=== PATIENT | male | born 1975 | race Hispanic/Latino ===

== ENCOUNTER 2020-11-21 16:53 | Emergency (ER) | payer OTHER ==
[2020-11-21 18:30] LABS: BASOPHILS % (AUTO) 0.6 % (0.0-5.0); EOSINOPHILS % (AUTO) 1.9 % (0.0-8.0); HEMATOCRIT 40.1 % (42-54); LYMPHOCYTES % (AUTO) 22.4 % (21.0-51.0); MEAN CORPUSCULAR HEMOGLOBIN 29.6 pg (27.0-33.0); MEAN CORPUSCULAR HGB CONC 34.9 g/dL (32.0-36.0); MEAN CORPUSCULAR VOLUME 84.8 fL (79-99); MONOCYTES % (AUTO) 5.6 % (3.0-13.0); NEUTROPHILS % (AUTO) 69.5 % (40.0-77.0); PLATELET COUNT (AUTO) 25 K/uL (130-400); RED BLOOD CELL COUNT(AUTO) 4.73 MIL/uL (4.50-6.20); RED CELL DISTRIBUTION WIDTH 14.6 % (11.0-15.5); WHITE BLOOD COUNT (AUTO) 3.2 K/uL (4.8-10.8)
[2020-11-21 18:33] LABS: CREATININE 0.7 mg/dL (0.5-1.5); POTASSIUM 3.6 mmol/L (3.5-5.1)
[2020-11-21 18:35] LABS: INR 1.32 (0.85-1.15)
[2020-11-21 18:36] LABS: PARTIAL THROMBOPLASTIN TIME 30.4 SEC (26.3-35.5)
[2020-11-21 18:37] LABS: ALBUMIN 3.6 g/dL (3.5-5.0); BILIRUBIN,TOTAL 3.5 mg/dL (0.2-1.0); TOTAL PROTEIN, SERUM 8.3 g/dL (6.0-8.3)
[2020-11-21] MEDS ORDERED: SODIUM CHLORIDE 0.9% 500ML 500 ML IV ONE (20:00)
[2020-11-21] MEDS ORDERED: LORAZEPAM 2 MG/ML 1 ML VIAL ONE (21:48)
[2020-11-21] MEDS ORDERED: SODIUM CHLORIDE 0.9% 100 ML IV ONE (22:22)
== END 2020-11-22 00:39 | disposition home or self-care (01) ==
LOC: EDH 16:53
DX: D69.59 Other secondary thrombocytopenia (principal); F10.10 Alcohol abuse, uncomplicated; R21 Rash and other nonspecific skin eruption
CPT/HCPCS: 36415; 36430; 80053; 85025; 85610; 85730; 86850; 86900; 86901; 96361; 96374; 99285; J2060; J7040; P9034

== ENCOUNTER 2021-07-09 02:26 | Inpatient (IN) | payer OTHER ==
[~2021-07-09] VITALS: Ht 180.3 cm; Wt 113.9 kg
[2021-07-09 03:08] LABS: BASOPHILS % (AUTO) 0.6 % (0.0-5.0); CREATININE 0.8 mg/dL (0.5-1.5); EOSINOPHILS % (AUTO) 0.6 % (0.0-8.0); HEMATOCRIT 36.1 % (42-54); LYMPHOCYTES % (AUTO) 21.1 % (21.0-51.0); MEAN CORPUSCULAR HEMOGLOBIN 22.3 pg (27.0-33.0); MEAN CORPUSCULAR HGB CONC 29.6 g/dL (32.0-36.0); MEAN CORPUSCULAR VOLUME 75.4 fL (79-99); MONOCYTES % (AUTO) 6.7 % (3.0-13.0); NEUTROPHILS % (AUTO) 69.6 % (40.0-77.0); POTASSIUM 3.5 mmol/L (3.5-5.1); RED BLOOD CELL COUNT(AUTO) 4.79 MIL/uL (4.50-6.20); RED CELL DISTRIBUTION WIDTH 20.3 % (11.0-15.5); WHITE BLOOD COUNT (AUTO) 3.6 K/uL (4.8-10.8)
[2021-07-09] MEDS ORDERED: 0.9%NACL 1000ML 1,000 ML IV ONE ×3 (03:14→04:00)
[2021-07-09 03:20] LABS: ALBUMIN 3.3 g/dL (3.5-5.0); BILIRUBIN,TOTAL 3.4 mg/dL (0.2-1.0); TOTAL PROTEIN, SERUM 8.1 g/dL (6.0-8.3)
[2021-07-09 03:36] LABS: B-TYPE NATRIURETIC PEPTIDE 19 pg/mL (0-100); PLATELET COUNT (AUTO) 18 K/uL (130-400)
[2021-07-09] MEDS ORDERED: CALCIUM GLUC 1GM/10ML VIAL IV ONE (04:00)
[2021-07-09] MEDS ORDERED: NITROGLYCERIN 0.4 MG SL TAB SL PRN (04:30)
[2021-07-09] MEDS: LACTULOSE 20 GM/30 ML UDCUP PO SCH ×4 (04:30→22:30)
[2021-07-09] MEDS ORDERED: LORAZEPAM 2 MG/ML 1 ML VIAL IVP PRN (04:30)
[2021-07-09] MEDS ORDERED: CHLORDIAZEPOXIDE HCL 25 MG CAP PO PRN (04:30)
[2021-07-09] MEDS ORDERED: 0.9%NACL 1000ML 1,000 ML IV SCH (04:30)
[2021-07-09] MEDS ORDERED: THIAMINE HCL 100 MG, FOLIC ACID 1 MG, M.V.I. IV [ADULT] 10 ML in 0.9%NACL 1000ML 1,000 ML IV SCH (04:30)
[2021-07-09] MEDS ORDERED: PHARMACY COMMUNICATION MISC PRN (04:30)
[2021-07-09] MEDS ORDERED: PROMETHAZINE HCL 25 MG TABLET PO PRN (04:30)
[2021-07-09] MEDS ORDERED: CALCIUM GLUC 1GM 1 GM in 0.9%NACL 100ML 100 ML IV ONE (04:30)
[2021-07-09] MEDS: CHLORDIAZEPOXIDE HCL 25 MG CAP PO PRN ×3 (05:06→20:40)
[2021-07-09] MEDS: LORAZEPAM 2 MG/ML 1 ML VIAL IVP PRN ×3 (05:06→14:00)
[2021-07-09 05:08] LABS: PHOSPHORUS 3.8 mg/dL (2.5-4.9)
[2021-07-09 05:09] LABS: % IRON SATURATION 15.2 % (30-44)
[2021-07-09] MEDS ORDERED: THIAMINE HCL 100 MG/ML 2ML VIAL ONE (05:10)
[2021-07-09] MEDS ORDERED: M.V.I. IV [ADULT] 10 ML VIAL IV ONE (05:10)
[2021-07-09] MEDS ORDERED: CALCIUM GLUC 1GM/10ML VIAL ONE (05:12)
[2021-07-09] MEDS ORDERED: 0.9%NACL 100ML 100 ML ONE (05:13)
[2021-07-09 05:33] LABS: CRP QUANTITATIVE < 2.00 mg/L (0.00-9.0)
[2021-07-09] MEDS: LACTATED RINGERS 1000ML 1,000 ML IV SCH ×3 (06:16→20:30)
[2021-07-09 06:18] LABS: BASOPHILS % (AUTO) 0.4 % (0.0-5.0); EOSINOPHILS % (AUTO) 1.1 % (0.0-8.0); HEMATOCRIT 33.2 % (42-54); LYMPHOCYTES % (AUTO) 26.8 % (21.0-51.0); MEAN CORPUSCULAR HEMOGLOBIN 22.5 pg (27.0-33.0); MEAN CORPUSCULAR HGB CONC 29.8 g/dL (32.0-36.0); MEAN CORPUSCULAR VOLUME 75.5 fL (79-99); MONOCYTES % (AUTO) 7.4 % (3.0-13.0); NEUTROPHILS % (AUTO) 62.9 % (40.0-77.0); PLATELET COUNT (AUTO) 16 K/uL (130-400); RED CELL DISTRIBUTION WIDTH 19.9 % (11.0-15.5); WHITE BLOOD COUNT (AUTO) 2.8 K/uL (4.8-10.8)
[2021-07-09 06:27] LABS: INR 1.36 (0.85-1.15); PROTHROMBIN TIME 14.4 SEC (9.6-11.6)
[2021-07-09 06:29] LABS: PARTIAL THROMBOPLASTIN TIME 30.7 SEC (26.3-35.5)
[2021-07-09 07:12] LABS: EOSINOPHILS % (MANUAL) 1 % (1-6); LYMPHOCYTES % (MANUAL) 20 % (22-44); MAN.DIFF COMMENT-IMPRESSION MANUAL DIFFERENTIAL; MONOCYTES % (MANUAL) 1 % (2-9); SEGMENTED NEUTROPHILS % 78 % (40-70)
[2021-07-09 07:16] LABS: PLATELET MORPHOLOGY COMMENT MARKED DEC
[2021-07-09] MEDS: THIAMINE HCL 100 MG, FOLIC ACID 1 MG, M.V.I. IV [ADULT] 10 ML in 0.9%NACL 1000ML 1,000 ML IV SCH (09:00)
[2021-07-09] MEDS: FAMOTIDINE 20MG TAB PO SCH ×2 (09:00→21:00)
[2021-07-10] MEDS ORDERED: ONDANSETRON 4MG INJ ONE (03:22)
[2021-07-10] MEDS ORDERED: ONDANSETRON 4MG INJ IVP PRN (03:30)
[2021-07-10 03:55] VITALS: BP 124/75
[2021-07-10] MEDS: LACTATED RINGERS 1000ML 1,000 ML IV SCH (04:30)
[2021-07-10] MEDS: THIAMINE HCL 100 MG, FOLIC ACID 1 MG, M.V.I. IV [ADULT] 10 ML in 0.9%NACL 1000ML 1,000 ML IV SCH ×2 (06:30→22:57)
[2021-07-10 06:42] LABS: BASOPHILS % (AUTO) 1.2 % (0.0-5.0); EOSINOPHILS % (AUTO) 2.9 % (0.0-8.0); LYMPHOCYTES % (AUTO) 27.7 % (21.0-51.0); MEAN CORPUSCULAR HEMOGLOBIN 23.3 pg (27.0-33.0); MEAN CORPUSCULAR VOLUME 75.1 fL (79-99); MONOCYTES % (AUTO) 9.8 % (3.0-13.0); NEUTROPHILS % (AUTO) 57.8 % (40.0-77.0); PLATELET COUNT (AUTO) 12 K/uL (130-400); RED BLOOD CELL COUNT(AUTO) 3.86 MIL/uL (4.50-6.20); WHITE BLOOD COUNT (AUTO) 1.7 K/uL (4.8-10.8)
[2021-07-10 06:53] LABS: ALBUMIN 2.7 g/dL (3.5-5.0); CREATININE 0.7 mg/dL (0.5-1.5); POTASSIUM 3.3 mmol/L (3.5-5.1); TOTAL PROTEIN, SERUM 6.8 g/dL (6.0-8.3)
[2021-07-10] MEDS: LACTULOSE 20 GM/30 ML UDCUP PO SCH ×4 (07:30→20:54)
[2021-07-10 08:15] LABS: HEPATITIS B CORE IGM Negative (Negative); HEPATITIS Bs ANTIGEN SCREEN P Negative (Negative)
[2021-07-10 11:12] LABS: % IRON SATURATION 11.4 % (30-44)
[2021-07-10] MEDS: FAMOTIDINE 20MG TAB PO SCH ×2 (12:22→20:56)
[2021-07-10 14:54] LABS: HEMATOCRIT 31.6 % (42-54); MEAN CORPUSCULAR HEMOGLOBIN 22.9 pg (27.0-33.0); MEAN CORPUSCULAR HGB CONC 30.7 g/dL (32.0-36.0); MEAN CORPUSCULAR VOLUME 74.7 fL (79-99); PLATELET COUNT (AUTO) 12 K/uL (130-400); RED BLOOD CELL COUNT(AUTO) 4.23 MIL/uL (4.50-6.20); RED CELL DISTRIBUTION WIDTH 20.2 % (11.0-15.5); WHITE BLOOD COUNT (AUTO) 2.2 K/uL (4.8-10.8)
[2021-07-10] MEDS ORDERED: COMPOUND IV MISC 1 EACH IVSOLN MISC PRN (15:00)
[2021-07-10 15:23] LABS: BAND NEUTROPHILS % (MANUAL) 5 % (0-2); BASOPHILS % (MANUAL) 1 % (0-2); EOSINOPHILS % (MANUAL) 3 % (1-6); LYMPHOCYTES % (MANUAL) 19 % (22-44); MONOCYTES % (MANUAL) 9 % (2-9); REACTIVE LYMPHOCYTES 1 % (0-0); SEGMENTED NEUTROPHILS % 62 % (40-70)
[2021-07-10 15:24] LABS: MAN.DIFF COMMENT-IMPRESSION MANUAL DIFFERENTIAL
[2021-07-10 15:33] LABS: ALANINE AMINOTRANSFERASE 57 U/L (12-78); ASPARTATE AMINOTRANSFERASE 122 U/L (10-37); BILIRUBIN,TOTAL 3.6 mg/dL (0.2-1.0); CARBON DIOXIDE 25 mmol/L (21-32); CHLORIDE 103 mmol/L (101-111); CREATININE 0.8 mg/dL (0.5-1.5); GLOMERULAR FILTR. RATE CALC 112 mL/min (>60); GLUCOSE,RANDOM 99 mg/dL (70-105); LACTATE DEHYDROGENASE 235 U/L (81-234); POTASSIUM 3.2 mmol/L (3.5-5.1); SODIUM SERUM 139 mmol/L (136-145); TOTAL PROTEIN, SERUM 7.4 g/dL (6.0-8.3); UREA NITROGEN, BLOOD 9 mg/dL (7-18)
[2021-07-10 16:19] VITALS: BP 121/78
[2021-07-10 16:20] VITALS: BP 141/89
[2021-07-10 16:21] VITALS: BP 129/89
[2021-07-10] MEDS ORDERED: POTASSIUM CHLORIDE 20MEQ/100ML 100 ML IV PRN (16:30)
[2021-07-10] MEDS ORDERED: LORAZEPAM 2 MG/ML 1 ML VIAL IVP PRN (17:30)
[2021-07-10 20:00] VITALS: BP 153/99
[2021-07-10] MEDS ORDERED: MORPHINE 2 MG SYG IVP SCH (20:30)
[2021-07-10] MEDS ORDERED: ACETAMINOPHEN 325 MG TAB ONE (20:51)
[2021-07-10] MEDS: CEFTRIAXONE 1G VIAL IVP SCH (20:54)
[2021-07-10] MEDS: KCL 20 MEQ ERTAB PO PRN (20:55)
[2021-07-10] MEDS: IRON SUCROSE COMPLEX 300 MG in 0.9%NACL 50ML 50 ML IV SCH (20:55)
[2021-07-10] MEDS ORDERED: ACETAMINOPHEN 325 MG TAB PO ONE (21:00)
[2021-07-10] MEDS: RIFAXIMIN 550 MG TABLET PO SCH (21:28)
[2021-07-10 23:29] LABS: APPEARANCE,URINE Clear (CLEAR); BILIRUBIN,URINE Moderate (NEGATIVE); COLOR,URINE Dark Yellow (YELLOW); GLUCOSE, URINE (UA) Negative (NEGATIVE); KETONES,URINE >=160 mg/dL (NEGATIVE); LEUKOCYTE ESTERASE ,URINE Small (NEGATIVE); NITRATE,URINE Positive (NEGATIVE); OCCULT BLOOD,URINE Negative (NEGATIVE); PROTEIN,URINE Trace mg/dL (NEGATIVE)
[2021-07-10 23:36] LABS: AMPHET/METH SCREEN,URINE NEGATIVE (NEGATIVE); BARBITURATE SCREEN, URINE NEGATIVE (NEGATIVE); BENZODIAZEPINES SCREEN,URINE POSITIVE (NEGATIVE); CANNABINOID SCREEN,URINE POSITIVE (NEGATIVE); COCAINE SCREEN,URINE NEGATIVE (NEGATIVE); OPIATE SCREEN,URINE NEGATIVE (NEGATIVE); PHENCYCLIDINE SCREEN,URINE NEGATIVE (NEGATIVE)
[2021-07-10 23:48] LABS: BACTERIA,URINE Rare /HPF (None Seen); MUCUS,URINE Few LPF (None Seen); RBC,URINE None Seen /HPF (0-1); SQUAMOUS EPITHELIAL CELL,UR Rare /HPF (0-2); WBC,URINE 0-1 /HPF (0-1)
[2021-07-11] VITALS: BP 151/94
[2021-07-11] MEDS: KCL 20 MEQ ERTAB PO PRN ×3 (00:45→18:20)
[2021-07-11 04:00] VITALS: BP 147/92
[2021-07-11 04:42] LABS: BASOPHILS % (AUTO) 0.6 % (0.0-5.0); EOSINOPHILS % (AUTO) 2.3 % (0.0-8.0); HEMATOCRIT 30.8 % (42-54); MEAN CORPUSCULAR HEMOGLOBIN 23.1 pg (27.0-33.0); MEAN CORPUSCULAR HGB CONC 30.5 g/dL (32.0-36.0); MEAN CORPUSCULAR VOLUME 75.7 fL (79-99); MONOCYTES % (AUTO) 9.7 % (3.0-13.0); NEUTROPHILS % (AUTO) 65.3 % (40.0-77.0); RED BLOOD CELL COUNT(AUTO) 4.07 MIL/uL (4.50-6.20); RED CELL DISTRIBUTION WIDTH 19.9 % (11.0-15.5); WHITE BLOOD COUNT (AUTO) 1.8 K/uL (4.8-10.8)
[2021-07-11 04:52] LABS: ALBUMIN 2.7 g/dL (3.5-5.0); BILIRUBIN,TOTAL 3.5 mg/dL (0.2-1.0); CREATININE 0.7 mg/dL (0.5-1.5); POTASSIUM 3.2 mmol/L (3.5-5.1); TOTAL PROTEIN, SERUM 6.9 g/dL (6.0-8.3)
[2021-07-11] MEDS: LACTULOSE 20 GM/30 ML UDCUP PO SCH ×4 (04:54→22:30)
[2021-07-11 04:55] LABS: PLATELET COUNT (AUTO) 9 K/uL (130-400)
[2021-07-11] MEDS ORDERED: PANT40TA55 PO (06:12)
[2021-07-11] MEDS ORDERED: MULT-1367 PO (06:12)
[2021-07-11 07:51] VITALS: BP 167/101
[2021-07-11 08:06] LABS: INR 1.46 (0.85-1.15); PROTHROMBIN TIME 15.4 SEC (9.6-11.6)
[2021-07-11] MEDS: POTASSIUM CHLORIDE 10% ELIXIR 20 MEQ/15 ML UDCUP PO PRN (08:55)
[2021-07-11] MEDS: FAMOTIDINE 20MG TAB PO SCH (08:55)
[2021-07-11] MEDS: RIFAXIMIN 550 MG TABLET PO SCH ×2 (08:55→21:54)
[2021-07-11 12:01] VITALS: BP 140/98
[2021-07-11] MEDS ORDERED: DiphenhydrAMINE HCL 50 MG/ML VIAL IV SCH (13:00)
[2021-07-11 16:00] VITALS: BP 143/90
[2021-07-11] MEDS: IRON SUCROSE COMPLEX 300 MG in 0.9%NACL 50ML 50 ML IV SCH (16:36)
[2021-07-11] MEDS: CEFTRIAXONE 1G VIAL IVP SCH (16:36)
[2021-07-11] MEDS ORDERED: OCTREOTIDE ACETATE 1,250 MCG in 0.9% NACL 250ML 250 ML IV SCH (18:00)
[2021-07-11] MEDS ORDERED: PANTOPRAZOLE 40MG INJ 80 MG in 0.9%NACL 100ML 100 ML IVP SCH (18:00)
[2021-07-11] MEDS ORDERED: PANTOPRAZOLE 40 MG/VIAL IVP ONE (18:24)
[2021-07-11] MEDS ORDERED: OCTREOTIDE ACETATE 100 MCG/ML AMP IV SCH (18:25)
[2021-07-11 20:00] VITALS: BP 145/101
[2021-07-11] MEDS ORDERED: HYDRALAZINE 20MG/ML VIAL ONE (23:32)
[2021-07-12] VITALS: BP 143/88
[2021-07-12] MEDS ORDERED: HYDRALAZINE 20MG/ML VIAL IV ONE
[2021-07-12] MEDS: CHLORDIAZEPOXIDE HCL 25 MG CAP PO PRN (00:45)
[2021-07-12] MEDS: LACTULOSE 20 GM/30 ML UDCUP PO SCH ×4 (03:39→21:46)
[2021-07-12 04:00] VITALS: BP 145/83
[2021-07-12 04:53] LABS: BASOPHILS % (AUTO) 0.4 % (0.0-5.0); EOSINOPHILS % (AUTO) 2.7 % (0.0-8.0); HEMATOCRIT 31.7 % (42-54); LYMPHOCYTES % (AUTO) 17.9 % (21.0-51.0); MEAN CORPUSCULAR HEMOGLOBIN 22.8 pg (27.0-33.0); MEAN CORPUSCULAR HGB CONC 30.6 g/dL (32.0-36.0); MEAN CORPUSCULAR VOLUME 74.6 fL (79-99); MONOCYTES % (AUTO) 10.3 % (3.0-13.0); NEUTROPHILS % (AUTO) 67.4 % (40.0-77.0); NUCLEATED RED BLOOD CELLS 1.3 % (0.0-0.19); PLATELET COUNT (AUTO) 19 K/uL (130-400); RED BLOOD CELL COUNT(AUTO) 4.25 MIL/uL (4.50-6.20); RED CELL DISTRIBUTION WIDTH 20.6 % (11.0-15.5); WHITE BLOOD COUNT (AUTO) 2.2 K/uL (4.8-10.8)
[2021-07-12 05:06] LABS: ALBUMIN 2.8 g/dL (3.5-5.0); BILIRUBIN,TOTAL 2.7 mg/dL (0.2-1.0); CREATININE 0.7 mg/dL (0.5-1.5); TOTAL PROTEIN, SERUM 7.1 g/dL (6.0-8.3)
[2021-07-12] MEDS: KCL 20 MEQ ERTAB PO PRN ×3 (05:32→09:00)
[2021-07-12 06:02] LABS: BAND NEUTROPHILS % (MANUAL) 10 % (0-2); EOSINOPHILS % (MANUAL) 3 % (1-6); LYMPHOCYTES % (MANUAL) 21 % (22-44); MAN.DIFF COMMENT-IMPRESSION MANUAL DIFFERENTIAL; METAMYELOCYTES % 1 % (0-0); MONOCYTES % (MANUAL) 8 % (2-9); PLATELET MORPHOLOGY COMMENT MARKED DECREASE; REACTIVE LYMPHOCYTES 2 % (0-0); SEGMENTED NEUTROPHILS % 55 % (40-70)
[2021-07-12 08:02] VITALS: BP 151/87
[2021-07-12] MEDS: RIFAXIMIN 550 MG TABLET PO SCH ×2 (08:35→20:10)
[2021-07-12] MEDS: PANTOPRAZOLE 40 MG TAB DR PO SCH (08:35)
[2021-07-12] MEDS: POTASSIUM CHLORIDE 10% ELIXIR 20 MEQ/15 ML UDCUP PO PRN ×3 (10:53→18:41)
[2021-07-12] MEDS ORDERED: MAGNESIUM 2GM PREMIX 50ML 50 ML IV SCH (11:00)
[2021-07-12 12:04] VITALS: BP 171/87
[2021-07-12 16:00] VITALS: BP 132/85
[2021-07-12] MEDS: IRON SUCROSE COMPLEX 300 MG in 0.9%NACL 50ML 50 ML IV SCH (16:04)
[2021-07-12] MEDS: CEFTRIAXONE 1G VIAL IVP SCH (16:27)
[2021-07-12 20:00] VITALS: BP 129/84
[2021-07-13] VITALS (9 sets, daily range): BP systolic 127–154; BP diastolic 81–101
[2021-07-13 04:23] LABS: BASOPHILS % (AUTO) 0.4 % (0.0-5.0); EOSINOPHILS % (AUTO) 1.8 % (0.0-8.0); HEMATOCRIT 34.1 % (42-54); LYMPHOCYTES % (AUTO) 16.1 % (21.0-51.0); MEAN CORPUSCULAR HEMOGLOBIN 23.3 pg (27.0-33.0); MEAN CORPUSCULAR HGB CONC 30.2 g/dL (32.0-36.0); MONOCYTES % (AUTO) 14.3 % (3.0-13.0); NEUTROPHILS % (AUTO) 65.6 % (40.0-77.0); NUCLEATED RED BLOOD CELLS 1.8 % (0.0-0.19); PLATELET COUNT (AUTO) 25 K/uL (130-400); RED BLOOD CELL COUNT(AUTO) 4.43 MIL/uL (4.50-6.20); RED CELL DISTRIBUTION WIDTH 21.9 % (11.0-15.5); WHITE BLOOD COUNT (AUTO) 2.2 K/uL (4.8-10.8)
[2021-07-13 04:41] LABS: ALBUMIN 2.9 g/dL (3.5-5.0); BILIRUBIN,TOTAL 2.6 mg/dL (0.2-1.0); CREATININE 0.8 mg/dL (0.5-1.5); POTASSIUM 3.4 mmol/L (3.5-5.1); TOTAL PROTEIN, SERUM 7.2 g/dL (6.0-8.3)
[2021-07-13] MEDS: KCL 20 MEQ ERTAB PO PRN (05:05)
[2021-07-13] MEDS: LACTULOSE 20 GM/30 ML UDCUP PO SCH (05:05)
[2021-07-13] MEDS: PANTOPRAZOLE 40 MG TAB DR PO SCH (08:23)
[2021-07-13] MEDS: RIFAXIMIN 550 MG TABLET PO SCH ×2 (08:23→20:49)
[2021-07-13] MEDS: POTASSIUM CHLORIDE 10% ELIXIR 20 MEQ/15 ML UDCUP PO PRN (09:08)
[2021-07-13] MEDS ORDERED: PHARMACY COMMUNICATION MISC SCH (09:30)
[2021-07-13] MEDS: CEFEPIME HCL 2 GM VIAL IVP SCH ×2 (12:17→21:52)
[2021-07-13] MEDS ORDERED: LACTULOSE 20 GM/30 ML UDCUP PO PRN (14:00)
[2021-07-13] MEDS: IRON SUCROSE COMPLEX 300 MG in 0.9%NACL 50ML 50 ML IV SCH (16:36)
[2021-07-14] VITALS (16 sets, daily range): BP systolic 118–156; BP diastolic 74–93
[2021-07-14 04:38] LABS: HEMATOCRIT 32.6 % (42-54); LYMPHOCYTES % (AUTO) 25.4 % (21.0-51.0); MEAN CORPUSCULAR HEMOGLOBIN 23.5 pg (27.0-33.0); MEAN CORPUSCULAR HGB CONC 29.8 g/dL (32.0-36.0); MEAN CORPUSCULAR VOLUME 79.1 fL (79-99); MONOCYTES % (AUTO) 15.9 % (3.0-13.0); NEUTROPHILS % (AUTO) 55.2 % (40.0-77.0); PLATELET COUNT (AUTO) 26 K/uL (130-400); RED BLOOD CELL COUNT(AUTO) 4.12 MIL/uL (4.50-6.20); RED CELL DISTRIBUTION WIDTH 23.4 % (11.0-15.5)
[2021-07-14 04:58] LABS: ALBUMIN 2.6 g/dL (3.5-5.0); BILIRUBIN,TOTAL 2.2 mg/dL (0.2-1.0); CREATININE 0.8 mg/dL (0.5-1.5); POTASSIUM 3.4 mmol/L (3.5-5.1); TOTAL PROTEIN, SERUM 6.7 g/dL (6.0-8.3)
[2021-07-14] MEDS: PANTOPRAZOLE 40 MG TAB DR PO SCH (09:00)
[2021-07-14] MEDS: RIFAXIMIN 550 MG TABLET PO SCH ×2 (09:00→21:02)
[2021-07-14] MEDS ORDERED: MIDAZOLAM HCL 1 MG/ML 2ML VIAL ONE (09:49)
[2021-07-14] MEDS ORDERED: FENTANYL CITRATE PF 50 MCG/1 ML 2ML VIAL ONE (09:49)
[2021-07-14] MEDS: CEFEPIME HCL 2 GM VIAL IVP SCH ×2 (12:01→22:11)
[2021-07-14] MEDS: POTASSIUM CHLORIDE 10% ELIXIR 20 MEQ/15 ML UDCUP PO PRN ×2 (12:01→13:36)
[2021-07-14] MEDS: IRON SUCROSE COMPLEX 300 MG in 0.9%NACL 50ML 50 ML IV SCH (15:45)
[2021-07-14] MEDS ORDERED: TRAZODONE HCL 50 MG TAB PO SCH (21:00)
[2021-07-15 00:04] VITALS: BP 104/65
[2021-07-15 04:04] VITALS: BP 144/93
[2021-07-15 07:42] VITALS: BP 152/85
[2021-07-15] MEDS ORDERED: FOLIC ACID 1 MG TABLET PO SCH (09:00)
[2021-07-15] MEDS ORDERED: CYANOCOBALAMIN (VITAMIN B-12) 100 MCG TABLET PO SCH (09:00)
[2021-07-15] MEDS: PANTOPRAZOLE 40 MG TAB DR PO SCH (09:03)
[2021-07-15] MEDS: RIFAXIMIN 550 MG TABLET PO SCH (09:03)
== END 2021-07-15 12:31 | disposition left against medical advice (07) | DRG 433 ==
LOC: EDH 02:26 → EDHIP 02:27 → EEVIPCON 02:27 → 3CH 07-10 02:40
PROVIDERS: ADMIT Internal Medicine; ATTEND Internal Medicine
PROC: 30233R1 Transfusion of Nonautologous Platelets into Peripheral Vein, Percutaneous Approach (ICD-10-PCS; 2021-07-11)
PROC: 07DR3ZX Extraction of Iliac Bone Marrow, Percutaneous Approach, Diagnostic (ICD-10-PCS; principal; 2021-07-14)
DX: K70.10 Alcoholic hepatitis without ascites (principal); D61.818 Other pancytopenia; E87.2 Acidosis; K92.0 Hematemesis; R65.10 Systemic inflammatory response syndrome (SIRS) of non-infectious origin without acute organ dysfunction; K70.30 Alcoholic cirrhosis of liver without ascites; K70.40 Alcoholic hepatic failure without coma; F10.129 Alcohol abuse with intoxication, unspecified; D69.59 Other secondary thrombocytopenia; D50.9 Iron deficiency anemia, unspecified; Y90.8 Blood alcohol level of 240 mg/100 ml or more; R79.89 Other specified abnormal findings of blood chemistry; E86.0 Dehydration; F32.A Depression, unspecified; Z20.822 Contact with and (suspected) exposure to COVID-19; E83.51 Hypocalcemia; F19.10 Other psychoactive substance abuse, uncomplicated; R50.81 Fever presenting with conditions classified elsewhere; D70.9 Neutropenia, unspecified; E66.9 Obesity, unspecified; F43.20 Adjustment disorder, unspecified; Z59.9 Problem related to housing and economic circumstances, unspecified; Z63.0 Problems in relationship with spouse or partner; Z91.19 Patient's noncompliance with other medical treatment and regimen
CPT/HCPCS: 36415; 36430; 38222; 71045; 74176; 76705; 77012; 80053; 80074; 80305; 81001; 82140; 82270; 82330; 82550; 82607; 82728; 82746; 82948; 83540; 83550; 83605; 83615; 83690; 83735; 83874; 83880; 83883; 84100; 84132; 84145; 84484; 85025; 85027; 85610; 85651; 85730; 86140; 86334; 86850; 86900; 86901; 87040; 87088; 87635; 87804; 93005; 93306; 93356; 99152; 99153; C9113; G0378; J0360; J0610; J0692; J0696; J1200; J1756; J2060; J2250; J2354; J2405; J3010; J3411; J3475; J3490; J7030; J7050; J7120; P9034; Q0169

== ENCOUNTER 2021-11-01 18:20 | Inpatient (IN) | payer OTHER ==
[~2021-11-01] VITALS: Ht 177.8 cm; Wt 117.4 kg
[~2021-11-01 18:20] MED LIST: MULT-1367 PO; PANT40TA55 PO
[2021-11-01] MEDS ORDERED: 0.9%NACL 1000ML 1,000 ML IV ONE ×2 (18:49→19:00)
[2021-11-01 19:16] LABS: BASOPHILS % (AUTO) 0.9 % (0.0-5.0); EOSINOPHILS % (AUTO) 0.7 % (0.0-8.0); HEMATOCRIT 31.7 % (42-54); LYMPHOCYTES % (AUTO) 15.3 % (21.0-51.0); MEAN CORPUSCULAR HEMOGLOBIN 25.9 pg (27.0-33.0); MEAN CORPUSCULAR HGB CONC 31.9 g/dL (32.0-36.0); MEAN CORPUSCULAR VOLUME 81.3 fL (79-99); MONOCYTES % (AUTO) 5.7 % (3.0-13.0); NEUTROPHILS % (AUTO) 76.3 % (40.0-77.0); PLATELET COUNT (AUTO) 49 K/uL (130-400); RED CELL DISTRIBUTION WIDTH 17.4 % (11.0-15.5); WHITE BLOOD COUNT (AUTO) 4.4 K/uL (4.8-10.8)
[2021-11-01 19:31] LABS: CREATININE 0.5 mg/dL (0.5-1.5); POTASSIUM 3.5 mmol/L (3.5-5.1)
[2021-11-01 19:39] LABS: ALBUMIN 2.5 g/dL (3.5-5.0); BILIRUBIN,TOTAL 4.1 mg/dL (0.2-1.0)
[2021-11-01] MEDS ORDERED: IOHEXOL-350 75 ML VIAL IV ONE (19:40)
[2021-11-01 21:22] LABS: APPEARANCE,URINE Clear (CLEAR); BILIRUBIN,URINE Moderate (NEGATIVE); COLOR,URINE Dark Yellow (YELLOW); GLUCOSE, URINE (UA) Negative (NEGATIVE); KETONES,URINE >=80 mg/dL (NEGATIVE); LEUKOCYTE ESTERASE ,URINE Negative (NEGATIVE); NITRATE,URINE Negative (NEGATIVE); OCCULT BLOOD,URINE Negative (NEGATIVE); PH,URINE 6.5 (5.0-8.0); PROTEIN,URINE Trace mg/dL (NEGATIVE)
[2021-11-01 21:29] LABS: AMPHET/METH SCREEN,URINE NEGATIVE (NEGATIVE); BARBITURATE SCREEN, URINE NEGATIVE (NEGATIVE); BENZODIAZEPINES SCREEN,URINE NEGATIVE (NEGATIVE); CANNABINOID SCREEN,URINE NEGATIVE (NEGATIVE); COCAINE SCREEN,URINE NEGATIVE (NEGATIVE); OPIATE SCREEN,URINE NEGATIVE (NEGATIVE); PHENCYCLIDINE SCREEN,URINE NEGATIVE (NEGATIVE)
[2021-11-01 21:30] LABS: BACTERIA,URINE Rare /HPF (None Seen); MUCUS,URINE Few LPF (None Seen); RBC,URINE 0-1 /HPF (0-1); SQUAMOUS EPITHELIAL CELL,UR Few /HPF (0-2); WBC,URINE 0-1 /HPF (0-1)
[2021-11-01] MEDS ORDERED: PHARMACY COMMUNICATION MISC PRN (22:30)
[2021-11-01] MEDS ORDERED: LORAZEPAM 2 MG/ML 1 ML VIAL IVP PRN (22:30)
[2021-11-01] MEDS ORDERED: ONDANSETRON 4MG INJ IV PRN (22:30)
[2021-11-01 22:40] LABS: INR 1.32 (0.85-1.15)
[2021-11-01] MEDS ORDERED: THIAMINE HCL 100 MG/ML 2ML VIAL ONE (22:57)
[2021-11-01] MEDS ORDERED: M.V.I. IV [ADULT] 10 ML VIAL IV ONE (22:59)
[2021-11-01] MEDS ORDERED: FOLIC ACID 1 MG TABLET ONE (23:14)
[2021-11-01] MEDS: M.V.I. IV [ADULT] 10 ML, FOLIC ACID 1 MG, THIAMINE HCL 100 MG in 0.9%NACL 1000ML 1,000 ML IV SCH (23:20)
[2021-11-01] MEDS ORDERED: FOLIC ACID 1 MG TABLET PO ONE (23:30)
[2021-11-01 23:50] VITALS: BP 128/83
[2021-11-02] MEDS ORDERED: FOLI1 PO (00:14)
[2021-11-02] MEDS ORDERED: ONDA-104 PO (00:14)
[2021-11-02] MEDS ORDERED: FERR-82 PO (00:14)
[2021-11-02] MEDS ORDERED: LACTULOSE 20 GM/30 ML UDCUP PO SCH (00:30)
[2021-11-02] MEDS ORDERED: PHARMACY COMMUNICATION MISC PRN (01:30)
[2021-11-02 04:28] VITALS: BP 120/80
[2021-11-02 05:23] LABS: BASOPHILS % (AUTO) 0.9 % (0.0-5.0); EOSINOPHILS % (AUTO) 1.9 % (0.0-8.0); HEMATOCRIT 29.6 % (42-54); LYMPHOCYTES % (AUTO) 26.6 % (21.0-51.0); MEAN CORPUSCULAR HGB CONC 32.4 g/dL (32.0-36.0); MEAN CORPUSCULAR VOLUME 80.2 fL (79-99); MONOCYTES % (AUTO) 9.7 % (3.0-13.0); NEUTROPHILS % (AUTO) 60.6 % (40.0-77.0); PLATELET COUNT (AUTO) 32 K/uL (130-400); RED BLOOD CELL COUNT(AUTO) 3.69 MIL/uL (4.50-6.20); RED CELL DISTRIBUTION WIDTH 17.1 % (11.0-15.5); WHITE BLOOD COUNT (AUTO) 3.2 K/uL (4.8-10.8)
[2021-11-02 05:47] LABS: CREATININE 0.5 mg/dL (0.5-1.5); MAGNESIUM 1.8 mg/dL (1.80-2.40); PHOSPHORUS 3.3 mg/dL (2.5-4.9); POTASSIUM 3.3 mmol/L (3.5-5.1)
[2021-11-02 08:00] VITALS: BP 137/79
[2021-11-02] MEDS ORDERED: FAMOTIDINE 20MG TAB PO SCH (09:00)
[2021-11-02] MEDS: LACTULOSE 20 GM/30 ML UDCUP PO SCH ×3 (09:29→21:09)
[2021-11-02] MEDS: M.V.I. IV [ADULT] 10 ML, FOLIC ACID 1 MG, THIAMINE HCL 100 MG in 0.9%NACL 1000ML 1,000 ML IV SCH (09:29)
[2021-11-02] MEDS ORDERED: ONDANSETRON 4MG INJ IVP PRN (10:30)
[2021-11-02] MEDS ORDERED: KCL 20 MEQ ERTAB PO PRN (11:00)
[2021-11-02] MEDS ORDERED: POTASSIUM CHLORIDE 10% ELIXIR 20 MEQ/15 ML UDCUP PO PRN (11:00)
[2021-11-02] MEDS ORDERED: LIDOCAINE HCL-MPF 1% 2ML VIAL IV PRN (11:00)
[2021-11-02] MEDS ORDERED: POTASSIUM CHLORIDE 20MEQ/100ML 100 ML IV PRN (11:00)
[2021-11-02 12:00] VITALS: BP 138/86
[2021-11-02] MEDS ORDERED: ACETAMINOPHEN 325 MG TAB ONE (13:27)
[2021-11-02] MEDS ORDERED: ACETAMINOPHEN 325 MG TAB PO PRN (13:30)
[2021-11-02] MEDS: CHLORDIAZEPOXIDE HCL 25 MG CAP PO PRN ×3 (13:36→23:08)
[2021-11-02 13:44] LABS: ABG BASE EXCESS -1.7 mmol/L (-2.0-3.0); ABG HCO3 23.4 mmol/L (21.0-28.0); ABG OXYGEN SATURATION 70.2 % (95.0-99.0); ABG PCO2 41 mmHg (35-48)
[2021-11-02] MEDS: PANTOPRAZOLE 40 MG/VIAL IVP SCH (14:07)
[2021-11-02] MEDS: MORPHINE 2 MG SYG IVP PRN ×2 (15:54→23:08)
[2021-11-02 16:00] VITALS: BP 149/88
[2021-11-02 20:03] VITALS: BP 122/81
[2021-11-02 23:34] VITALS: BP 125/84
[2021-11-03] MEDS: LACTULOSE 20 GM/30 ML UDCUP PO SCH ×3 (02:00→14:07)
[2021-11-03 04:44] VITALS: BP 116/69
[2021-11-03 05:12] LABS: HEMATOCRIT 29.1 % (42-54); MEAN CORPUSCULAR HEMOGLOBIN 25.8 pg (27.0-33.0); MEAN CORPUSCULAR HGB CONC 31.3 g/dL (32.0-36.0); MEAN CORPUSCULAR VOLUME 82.4 fL (79-99); PLATELET COUNT (AUTO) 26 K/uL (130-400); RED BLOOD CELL COUNT(AUTO) 3.53 MIL/uL (4.50-6.20); RED CELL DISTRIBUTION WIDTH 17.6 % (11.0-15.5); WHITE BLOOD COUNT (AUTO) 1.7 K/uL (4.8-10.8)
[2021-11-03 05:25] LABS: ALBUMIN 2.1 g/dL (3.5-5.0); BILIRUBIN,TOTAL 2.9 mg/dL (0.2-1.0); CREATININE 0.5 mg/dL (0.5-1.5); POTASSIUM 3.5 mmol/L (3.5-5.1); TOTAL PROTEIN, SERUM 6.3 g/dL (6.0-8.3)
[2021-11-03 05:27] LABS: INR 1.4 (0.85-1.15); PARTIAL THROMBOPLASTIN TIME 23.7 SEC (26.3-35.5); PROTHROMBIN TIME 14.2 SEC (9.6-11.6)
[2021-11-03 08:00] VITALS: BP 118/80
[2021-11-03] MEDS: CHLORDIAZEPOXIDE HCL 25 MG CAP PO PRN ×2 (08:53→16:33)
[2021-11-03] MEDS: MORPHINE 2 MG SYG IVP PRN (08:54)
[2021-11-03] MEDS ORDERED: PANTOPRAZOLE 40 MG/VIAL IVP SCH (09:00)
[2021-11-03] MEDS ORDERED: LACT10SO9 PO (10:13)
[2021-11-03] MEDS ORDERED: ALBUMIN (HUMAN) 25% 200 ML IV SCH (12:30)
[2021-11-03] MEDS: PANTOPRAZOLE 40 MG/VIAL IVP SCH (13:00)
[2021-11-03] MEDS ORDERED: LIDOCAINE HCL 1% 20 ML VIAL ONE (15:40)
[2021-11-03 16:00] VITALS: BP 120/75
[2021-11-03 20:16] LABS: APPEARANCE BODY FLUID SLIGHTLY CLOUDY (CLEAR); COLOR,BODY FLUID YELLOW (LT YELLOW); SPECIMENTYPE,BODY FLUID ASCITES
[2021-11-03 20:17] LABS: BODY FLUID RBC 926 /cu. mm.; BODY FLUID WBC 77 /cu. mm.; TOTAL VOLUME,BODY FLUID 6500 mL
[2021-11-03 20:21] LABS: BF EOSINOPHIL 1 %; BF LYMPHOCYTE 13 %; BF MESOTHELIAL 2 %; BF MONOCYTE 3 %; BF OTHER CELLS 7
== END 2021-11-03 17:10 | disposition home or self-care (01) | DRG 433 ==
LOC: EDH 18:20 → EDHIP 18:21 → 3CH 23:23
PROVIDERS: ADMIT Hospitalist; ATTEND Hospitalist
PROC: 0W9G3ZZ Drainage of Peritoneal Cavity, Percutaneous Approach (ICD-10-PCS; principal; 2021-11-03)
DX: K74.60 Unspecified cirrhosis of liver (principal); D61.818 Other pancytopenia; R18.8 Other ascites; D68.9 Coagulation defect, unspecified; F10.129 Alcohol abuse with intoxication, unspecified; Y90.8 Blood alcohol level of 240 mg/100 ml or more; E86.0 Dehydration; K72.90 Hepatic failure, unspecified without coma
CPT/HCPCS: 36415; 36600; 49083; 70450; 74177; 80048; 80053; 80305; 81001; 82140; 82306; 82435; 82803; 82947; 82948; 83605; 83690; 83735; 84100; 84132; 84295; 84484; 85018; 85025; 85027; 85610; 85730; 87071; 87205; 89051; 93005; C1729; C9113; G0378; J3411; J3490; J7030; P9046; Q9967

== ENCOUNTER 2021-11-04 00:13 | Emergency (ER) | payer OTHER ==
[~2021-11-04] VITALS: Ht 177.8 cm; Wt 110.2 kg
[~2021-11-04 00:13] MED LIST changes: +FERR-82 PO; +FOLI1 PO; +LACT10SO9 PO; +ONDA-104 PO
[2021-11-04 00:32] VITALS: BP 132/93
[2021-11-04] MEDS ORDERED: FUROSEMIDE 40 MG TABLET PO ONE (02:00)
[2021-11-04] MEDS ORDERED: CHLORDIAZEPOXIDE HCL 25 MG CAP PO ONE (03:00)
== END 2021-11-04 03:01 | disposition home or self-care (01) ==
LOC: EDH 00:13
DX: G89.18 Other acute postprocedural pain (principal); R10.9 Unspecified abdominal pain; F10.10 Alcohol abuse, uncomplicated; Z79.899 Other long term (current) drug therapy

== ENCOUNTER 2021-11-05 22:19 | Emergency (ER) | payer OTHER ==
[~2021-11-05] VITALS: Ht 177.8 cm; Wt 108.9 kg
[2021-11-05 22:27] VITALS: BP 128/91
[2021-11-05 22:58] LABS: BASOPHILS % (AUTO) 0.4 % (0.0-5.0); EOSINOPHILS % (AUTO) 0.4 % (0.0-8.0); HEMATOCRIT 32.4 % (42-54); LYMPHOCYTES % (AUTO) 8.2 % (21.0-51.0); MEAN CORPUSCULAR HEMOGLOBIN 25.3 pg (27.0-33.0); MEAN CORPUSCULAR HGB CONC 31.2 g/dL (32.0-36.0); MEAN CORPUSCULAR VOLUME 81.2 fL (79-99); MONOCYTES % (AUTO) 5.3 % (3.0-13.0); NEUTROPHILS % (AUTO) 85.3 % (40.0-77.0); PLATELET COUNT (AUTO) 22 K/uL (130-400); RED BLOOD CELL COUNT(AUTO) 3.99 MIL/uL (4.50-6.20); RED CELL DISTRIBUTION WIDTH 17.7 % (11.0-15.5); WHITE BLOOD COUNT (AUTO) 4.5 K/uL (4.8-10.8)
[2021-11-05] MEDS ORDERED: 0.9% NACL 500ML IV.SOLN 500 ML IV ONE (23:00)
[2021-11-05] MEDS ORDERED: ACETAMINOPHEN 500 MG TABLET PO ONE (23:00)
[2021-11-05] MEDS ORDERED: 0.9%NACL 1000ML 1,000 ML IV ONE (23:00)
[2021-11-05 23:07] LABS: CARBON DIOXIDE 28 mmol/L (21-32); CHLORIDE 102 mmol/L (101-111); CREATININE 0.8 mg/dL (0.5-1.5); GLOMERULAR FILTR. RATE CALC 112 mL/min (>60); GLUCOSE,RANDOM 107 mg/dL (70-105); POTASSIUM 3.3 mmol/L (3.5-5.1); SODIUM SERUM 136 mmol/L (136-145); UREA NITROGEN, BLOOD 9 mg/dL (7-18)
[2021-11-05 23:11] LABS: ALANINE AMINOTRANSFERASE 50 U/L (12-78); ALBUMIN 2.6 g/dL (3.5-5.0); ALCOHOL, BLOOD < 3 mg/dL (0-10); AMMONIA 38 umol/L (11-32); ASPARTATE AMINOTRANSFERASE 90 U/L (10-37); BILIRUBIN,TOTAL 4.2 mg/dL (0.2-1.0); LIPASE 93 U/L (114-286)
[2021-11-05] MEDS ORDERED: IOHEXOL 350 MG/ML 100ML INFUS..BTL IV ONE (23:54)
[2021-11-06] MEDS ORDERED: AZITHROMYCIN 500MG+NS 250ML IVPB ONE
[2021-11-06] MEDS ORDERED: CEFTRIAXONE 1G VIAL IVP ONE
[2021-11-06] MEDS ORDERED: LEVO750T46 PO (02:14)
[2021-11-06] MEDS ORDERED: ONDA4TAB10 PO (02:14)
[2021-11-06] MEDS ORDERED: LEVOFLOXACIN 500 MG TABLET ONE (02:28)
[2021-11-06] MEDS ORDERED: LEVOFLOXACIN 750 MG TABLET PO ONE (02:30)
== END 2021-11-06 02:46 | disposition left against medical advice (07) ==
LOC: EDH 22:19
DX: A41.9 Sepsis, unspecified organism (principal); E86.1 Hypovolemia; Z20.822 Contact with and (suspected) exposure to COVID-19; R50.9 Fever, unspecified
CPT/HCPCS: 36415; 71045; 74177; 80053; 82140; 83605; 83690; 85025; 87040 ×2; 87635; 87804 ×2; 93005; 96361; 96365; 96375; 99285; C9803; J0456; J0696; J7030; J7040; Q9967

== ENCOUNTER 2021-11-12 05:47 | Emergency (ER) | payer OTHER ==
[~2021-11-12] VITALS: Ht 177.8 cm; Wt 117.9 kg
[~2021-11-12 05:47] MED LIST changes: +LEVO750T46 PO; +ONDA4TAB10 PO
[2021-11-12 06:36] LABS: BASOPHILS % (AUTO) 1.3 % (0.0-5.0); EOSINOPHILS % (AUTO) 2.5 % (0.0-8.0); HEMATOCRIT 28.7 % (42-54); LYMPHOCYTES % (AUTO) 29.7 % (21.0-51.0); MEAN CORPUSCULAR HGB CONC 31.4 g/dL (32.0-36.0); MEAN CORPUSCULAR VOLUME 82.9 fL (79-99); MONOCYTES % (AUTO) 15.2 % (3.0-13.0); NEUTROPHILS % (AUTO) 50.7 % (40.0-77.0); PLATELET COUNT (AUTO) 49 K/uL (130-400); RED BLOOD CELL COUNT(AUTO) 3.46 MIL/uL (4.50-6.20); RED CELL DISTRIBUTION WIDTH 18.3 % (11.0-15.5); WHITE BLOOD COUNT (AUTO) 1.6 K/uL (4.8-10.8)
[2021-11-12 06:38] LABS: INR 1.4 (0.85-1.15); PROTHROMBIN TIME 14.8 SEC (9.6-11.6)
[2021-11-12 06:39] LABS: PARTIAL THROMBOPLASTIN TIME 30.4 SEC (26.3-35.5)
[2021-11-12 06:41] LABS: ALBUMIN 2.1 g/dL (3.5-5.0); BILIRUBIN,TOTAL 2.2 mg/dL (0.2-1.0); CREATININE 0.7 mg/dL (0.5-1.5); POTASSIUM 3.4 mmol/L (3.5-5.1); TOTAL PROTEIN, SERUM 6.4 g/dL (6.0-8.3)
[2021-11-12] MEDS ORDERED: FUROSEMIDE 40MG VIAL IV SCH (07:30)
[2021-11-12 07:47] LABS: B-TYPE NATRIURETIC PEPTIDE 28 pg/mL (0-100)
[2021-11-12 08:33] LABS: PLATELET MORPHOLOGY COMMENT MARKED DECREASE
[2021-11-12] MEDS ORDERED: FURO-152 PO (08:56)
[2021-11-12] MEDS ORDERED: SPIR25TA6 PO (08:56)
[2021-11-12 09:25] VITALS: BP 142/78
== END 2021-11-12 09:00 | disposition home or self-care (01) ==
LOC: EDH 05:47
DX: K74.60 Unspecified cirrhosis of liver (principal); E87.70 Fluid overload, unspecified; R60.0 Localized edema; Z79.899 Other long term (current) drug therapy; Z98.890 Other specified postprocedural states; Z60.2 Problems related to living alone
CPT/HCPCS: 36415; 71045; 80053; 83880; 85025; 85610; 85730; 93005; 96374; 99285; J1940 ×2

== ENCOUNTER 2021-12-23 21:51 | Inpatient (IN) | payer OTHER ==
[~2021-12-23 21:51] MED LIST changes: +FURO-152 PO; +SPIR25TA6 PO
[2021-12-23] MEDS ORDERED: FAMOTIDINE 20MG TAB PO ONE (22:00)
[2021-12-23] MEDS ORDERED: PANTOPRAZOLE 40 MG/VIAL IVP ONE (22:00)
[2021-12-23] MEDS ORDERED: MORPHINE 2 MG SYG IVP ONE (22:00)
[2021-12-23] MEDS ORDERED: ONDANSETRON 4MG INJ IVP ONE (22:00)
[2021-12-23] MEDS ORDERED: LACTATED RINGERS 1000ML 1,000 ML IV ONE (22:00)
[2021-12-23 22:20] LABS: APPEARANCE,URINE Clear (CLEAR); BILIRUBIN,URINE Small (NEGATIVE); COLOR,URINE Dark Yellow (YELLOW); GLUCOSE, URINE (UA) Negative (NEGATIVE); KETONES,URINE Negative (NEGATIVE); LEUKOCYTE ESTERASE ,URINE Trace (NEGATIVE); NITRATE,URINE Negative (NEGATIVE); OCCULT BLOOD,URINE Negative (NEGATIVE); PH,URINE 6.5 (5.0-8.0); PROTEIN,URINE Trace mg/dL (NEGATIVE)
[2021-12-23 22:27] LABS: AMPHET/METH SCREEN,URINE NEGATIVE (NEGATIVE); BACTERIA,URINE Few /HPF (None Seen); BARBITURATE SCREEN, URINE NEGATIVE (NEGATIVE); BENZODIAZEPINES SCREEN,URINE NEGATIVE (NEGATIVE); CANNABINOID SCREEN,URINE NEGATIVE (NEGATIVE); COCAINE SCREEN,URINE NEGATIVE (NEGATIVE); MUCUS,URINE Few LPF (None Seen); OPIATE SCREEN,URINE NEGATIVE (NEGATIVE); PHENCYCLIDINE SCREEN,URINE NEGATIVE (NEGATIVE); RBC,URINE 0-1 /HPF (0-1); SQUAMOUS EPITHELIAL CELL,UR 0-2 /HPF (0-2)
[2021-12-23 22:59] LABS: BASOPHILS % (AUTO) 1.1 % (0.0-5.0); EOSINOPHILS % (AUTO) 1.5 % (0.0-8.0); HEMATOCRIT 36.8 % (42-54); LYMPHOCYTES % (AUTO) 36.7 % (21.0-51.0); MEAN CORPUSCULAR HEMOGLOBIN 24.7 pg (27.0-33.0); MEAN CORPUSCULAR HGB CONC 31.8 g/dL (32.0-36.0); MEAN CORPUSCULAR VOLUME 77.6 fL (79-99); MONOCYTES % (AUTO) 7.8 % (3.0-13.0); NEUTROPHILS % (AUTO) 52.5 % (40.0-77.0); PLATELET COUNT (AUTO) 38 K/uL (130-400); RED BLOOD CELL COUNT(AUTO) 4.74 MIL/uL (4.50-6.20); RED CELL DISTRIBUTION WIDTH 18.1 % (11.0-15.5); WHITE BLOOD COUNT (AUTO) 2.7 K/uL (4.8-10.8)
[2021-12-23] MEDS ORDERED: LORAZEPAM 2 MG/ML 1 ML VIAL ONE (23:16)
[2021-12-23 23:20] LABS: CREATININE 0.6 mg/dL (0.5-1.5); POTASSIUM 3.4 mmol/L (3.5-5.1)
[2021-12-23 23:21] LABS: EOSINOPHILS % (MANUAL) 1 % (1-6); LYMPHOCYTES % (MANUAL) 38 % (22-44); MAN.DIFF COMMENT-IMPRESSION MANUAL DIFFERENTIAL; MONOCYTES % (MANUAL) 6 % (2-9); SEGMENTED NEUTROPHILS % 55 % (40-70)
[2021-12-23 23:22] LABS: PLATELET MORPHOLOGY COMMENT MARKED DECREASE
[2021-12-23 23:25] LABS: ALBUMIN 2.9 g/dL (3.5-5.0)
[2021-12-23] MEDS ORDERED: LORAZEPAM 2 MG/ML 1 ML VIAL IVP ONE (23:30)
[2021-12-23] MEDS ORDERED: IOHEXOL 350 MG/ML 100ML INFUS..BTL IV ONE (23:46)
[2021-12-24] MEDS ORDERED: PHARMACY COMMUNICATION MISC PRN (02:00)
[2021-12-24 02:19] LABS: INR 1.31 (0.85-1.15); PROTHROMBIN TIME 14.1 SEC (9.6-11.6)
[2021-12-24 02:20] LABS: PARTIAL THROMBOPLASTIN TIME 33.6 SEC (26.3-35.5)
[2021-12-24] MEDS ORDERED: MAGNESIUM 2GM PREMIX 50ML 50 ML IV PRN (02:30)
[2021-12-24] MEDS ORDERED: POTASSIUM CHLORIDE 10% ELIXIR 20 MEQ/15 ML UDCUP PO PRN (02:30)
[2021-12-24] MEDS ORDERED: KCL 20 MEQ ERTAB PO PRN (02:30)
[2021-12-24] MEDS ORDERED: LIDOCAINE HCL-MPF 1% 2ML VIAL IV PRN (02:30)
[2021-12-24] MEDS: PROPRANOLOL HCL 20 MG TAB PO SCH ×2 (02:30→11:56)
[2021-12-24] MEDS ORDERED: ONDANSETRON 4MG INJ IV PRN (02:30)
[2021-12-24] MEDS ORDERED: POTASSIUM CHLORIDE 20MEQ/100ML 100 ML IV PRN (02:30)
[2021-12-24] MEDS ORDERED: CHLORDIAZEPOXIDE HCL 25 MG CAP ONE (02:49)
[2021-12-24] MEDS: LORAZEPAM 2 MG/ML 1 ML VIAL IVP PRN ×2 (03:00→12:11)
[2021-12-24] MEDS ORDERED: THIAMINE HCL 100 MG, FOLIC ACID 1 MG, M.V.I. IV [ADULT] 10 ML in 0.9%NACL 1000ML 1,000 ML IV SCH (08:30)
[2021-12-24] MEDS ORDERED: LACTULOSE 20 GM/30 ML UDCUP PO PRN (08:30)
[2021-12-24] MEDS ORDERED: FAMOTIDINE 20MG VIAL IV SCH (09:00)
[2021-12-24] MEDS ORDERED: CHLORDIAZEPOXIDE HCL 25 MG CAP PO ONE (09:00)
[2021-12-24 12:29] VITALS: BP 134/75
== END 2021-12-24 14:05 | disposition left against medical advice (07) | DRG 442 ==
LOC: EDH 21:51 → EDHIP 21:52
PROVIDERS: ADMIT Internal Medicine; ATTEND Internal Medicine
DX: K72.90 Hepatic failure, unspecified without coma (principal); D61.818 Other pancytopenia; R18.8 Other ascites; I85.00 Esophageal varices without bleeding; Z53.29 Procedure and treatment not carried out because of patient's decision for other reasons; E86.0 Dehydration; E87.6 Hypokalemia; F10.129 Alcohol abuse with intoxication, unspecified; Y90.8 Blood alcohol level of 240 mg/100 ml or more; D69.6 Thrombocytopenia, unspecified; D64.9 Anemia, unspecified
CPT/HCPCS: 36415; 71045; 74177; 80053; 80305; 81001; 82140; 83690; 84484; 85025; 85610; 85730; 86850; 86900; 86901; 93005; C9113; G0378; J2060; J2405; J3411; J3490; J7030; J7120; Q9967

== ENCOUNTER 2021-12-26 17:41 | Inpatient (IN) | payer OTHER ==
[~2021-12-26] VITALS: Ht 177.8 cm; Wt 99.8 kg
[2021-12-26] MEDS ORDERED: 0.9%NACL 1000ML 1,000 ML IV ONE (18:00)
[2021-12-26 18:19] LABS: BASOPHILS % (AUTO) 0.4 % (0.0-5.0); EOSINOPHILS % (AUTO) 1.8 % (0.0-8.0); HEMATOCRIT 33.9 % (42-54); LYMPHOCYTES % (AUTO) 38.7 % (21.0-51.0); MEAN CORPUSCULAR HEMOGLOBIN 24.8 pg (27.0-33.0); MEAN CORPUSCULAR HGB CONC 32.4 g/dL (32.0-36.0); MEAN CORPUSCULAR VOLUME 76.4 fL (79-99); MONOCYTES % (AUTO) 4.6 % (3.0-13.0); NEUTROPHILS % (AUTO) 54.1 % (40.0-77.0); RED BLOOD CELL COUNT(AUTO) 4.44 MIL/uL (4.50-6.20); WHITE BLOOD COUNT (AUTO) 2.8 K/uL (4.8-10.8)
[2021-12-26 18:27] LABS: PLATELET COUNT (AUTO) 31 K/uL (130-400)
[2021-12-26 18:47] LABS: ALANINE AMINOTRANSFERASE 43 U/L (12-78); ASPARTATE AMINOTRANSFERASE 100 U/L (10-37); BILIRUBIN,TOTAL 2.4 mg/dL (0.2-1.0); CARBON DIOXIDE 25 mmol/L (21-32); CHLORIDE 108 mmol/L (101-111); CREATININE 0.7 mg/dL (0.5-1.5); GLOMERULAR FILTR. RATE CALC 130 mL/min (>60); GLUCOSE,RANDOM 110 mg/dL (70-105); POTASSIUM 3.2 mmol/L (3.5-5.1); SODIUM SERUM 146 mmol/L (136-145); UREA NITROGEN, BLOOD 7 mg/dL (7-18)
[2021-12-26 18:53] LABS: BAND NEUTROPHILS % (MANUAL) 5 % (0-2); EOSINOPHILS % (MANUAL) 2 % (1-6); LYMPHOCYTES % (MANUAL) 32 % (22-44); METAMYELOCYTES % 1 % (0-0); MONOCYTES % (MANUAL) 3 % (2-9); SEGMENTED NEUTROPHILS % 57 % (40-70)
[2021-12-26 18:54] LABS: MAN.DIFF COMMENT-IMPRESSION MANUAL DIFFERENTIAL; PLATELET MORPHOLOGY COMMENT MARKED DECREASE
[2021-12-26 19:01] LABS: ACETAMINOPHEN < 1 mcg/mL (10-29); SALICYLATE < 2.8 mg/dL (2.8-20.0)
[2021-12-26 19:02] LABS: ALCOHOL, BLOOD 439 mg/dL (0-10)
[2021-12-26 19:13] LABS: AMPHET/METH SCREEN,URINE NEGATIVE (NEGATIVE); BARBITURATE SCREEN, URINE NEGATIVE (NEGATIVE); BENZODIAZEPINES SCREEN,URINE POSITIVE (NEGATIVE); CANNABINOID SCREEN,URINE NEGATIVE (NEGATIVE); COCAINE SCREEN,URINE NEGATIVE (NEGATIVE); OPIATE SCREEN,URINE NEGATIVE (NEGATIVE); PHENCYCLIDINE SCREEN,URINE NEGATIVE (NEGATIVE)
[2021-12-26] MEDS ORDERED: POTASSIUM BICARB/CIT AC 25 MEQ TABLET.EFF PO ONE (19:30)
[2021-12-26] MEDS ORDERED: POTASSIUM BICARB/CIT AC 25 MEQ TABLET.EFF ONE (20:31)
[2021-12-26] MEDS ORDERED: ACETAMINOPHEN 325 MG TAB PO PRN ×2 (21:30)
[2021-12-26] MEDS ORDERED: ONDANSETRON 4MG INJ IV PRN (21:30)
[2021-12-26] MEDS ORDERED: PHARMACY COMMUNICATION MISC PRN (21:30)
[2021-12-26] MEDS ORDERED: LACTULOSE 20 GM/30 ML UDCUP PO PRN (21:30)
[2021-12-26] MEDS ORDERED: CHLORDIAZEPOXIDE HCL 25 MG CAP PO PRN ×2 (21:30)
[2021-12-26] MEDS ORDERED: LORAZEPAM 2 MG/ML 1 ML VIAL IVP PRN ×2 (21:30)
[2021-12-26] MEDS ORDERED: 0.9%NACL 1000ML 1,000 ML IV SCH (21:30)
[2021-12-26] MEDS ORDERED: THIAMINE HCL 100 MG, FOLIC ACID 1 MG, M.V.I. IV [ADULT] 10 ML in 0.9%NACL 1000ML 1,000 ML IV SCH (21:30)
[2021-12-26] MEDS: CHLORDIAZEPOXIDE HCL 25 MG CAP PO SCH (22:53)
[2021-12-27 01:10] VITALS: BP 111/69
[2021-12-27 03:58] VITALS: BP 93/54
[2021-12-27 04:04] LABS: BASOPHILS % (AUTO) 0.5 % (0.0-5.0); EOSINOPHILS % (AUTO) 1.6 % (0.0-8.0); HEMATOCRIT 26.3 % (42-54); LYMPHOCYTES % (AUTO) 34.3 % (21.0-51.0); MEAN CORPUSCULAR HEMOGLOBIN 24.6 pg (27.0-33.0); MEAN CORPUSCULAR HGB CONC 31.2 g/dL (32.0-36.0); MONOCYTES % (AUTO) 6.3 % (3.0-13.0); NEUTROPHILS % (AUTO) 56.8 % (40.0-77.0); PLATELET COUNT (AUTO) 51 K/uL (130-400); RED BLOOD CELL COUNT(AUTO) 3.33 MIL/uL (4.50-6.20); RED CELL DISTRIBUTION WIDTH 18.1 % (11.0-15.5); WHITE BLOOD COUNT (AUTO) 4.3 K/uL (4.8-10.8)
[2021-12-27 04:21] LABS: CREATININE 0.7 mg/dL (0.5-1.5); POTASSIUM 3.9 mmol/L (3.5-5.1)
[2021-12-27] MEDS: LACTULOSE 20 GM/30 ML UDCUP PO SCH ×2 (06:06→14:49)
[2021-12-27] MEDS ORDERED: COMPOUND IV MISC 1 EACH IVSOLN MISC PRN (08:00)
[2021-12-27] MEDS ORDERED: CEFTRIAXONE 1G VIAL IVP SCH ×2 (08:00)
[2021-12-27] MEDS ORDERED: PANTOPRAZOLE 40MG INJ 80 MG in 0.9%NACL 100ML 100 ML IVP SCH (08:00)
[2021-12-27] MEDS ORDERED: OCTREOTIDE ACETATE 1,250 MCG in 0.9% NACL 250ML 250 ML IV SCH (08:00)
[2021-12-27] MEDS ORDERED: PHYTONADIONE 10 MG in 0.9%NACL 50ML 50 ML IVPB SCH (08:00)
[2021-12-27] MEDS ORDERED: COMPOUND IV REFRIGERATED 1 EACH IVSOLN MISC PRN (08:00)
[2021-12-27 08:02] LABS: HEMATOCRIT 22.4 % (42-54)
[2021-12-27 08:03] VITALS: BP 96/67
[2021-12-27 08:16] LABS: INR 1.53 (0.85-1.15); PROTHROMBIN TIME 16.3 SEC (9.6-11.6)
[2021-12-27 08:44] LABS: % IRON SATURATION 9.4 % (30-44); BILIRUBIN,TOTAL 1.7 mg/dL (0.2-1.0)
[2021-12-27] MEDS ORDERED: IRON SUCROSE COMPLEX 300 MG in 0.9%NACL 50ML 50 ML IV SCH (09:00)
[2021-12-27] MEDS ORDERED: FAMOTIDINE 20MG TAB PO SCH (09:00)
[2021-12-27] MEDS ORDERED: PANTOPRAZOLE 40 MG/VIAL IVP SCH (09:00)
[2021-12-27] MEDS: CHLORDIAZEPOXIDE HCL 25 MG CAP PO SCH (10:06)
[2021-12-27] MEDS ORDERED: CEFTRIAXONE 2GM VIAL ONE (10:09)
[2021-12-27] MEDS ORDERED: CEFTRIAXONE 1G VIAL ONE (10:11)
[2021-12-27] MEDS ORDERED: EPOETIN ALFA-EPBX (NON-ESRD) 10,000 UNIT/ML VIAL SQ SCH (11:30)
[2021-12-27 12:24] VITALS: BP 96/60
[2021-12-27 15:35] VITALS: BP 113/73
[2021-12-27] MEDS ORDERED: PEG 3350/NA SULF,BICARB,CL/KCL 4000 ML SOLN PO SCH (19:00)
== END 2021-12-27 17:00 | disposition left against medical advice (07) | DRG 377 ==
LOC: EDH 17:41 → EDHIP 17:42 → OBSVTOIN 17:42 → 2AH 12-27 01:10
PROVIDERS: ADMIT Internal Medicine; ATTEND Internal Medicine
DX: K92.2 Gastrointestinal hemorrhage, unspecified (principal); G93.41 Metabolic encephalopathy; D62 Acute posthemorrhagic anemia; D61.818 Other pancytopenia; E87.1 Hypo-osmolality and hyponatremia; Z53.29 Procedure and treatment not carried out because of patient's decision for other reasons; E86.0 Dehydration; F10.229 Alcohol dependence with intoxication, unspecified; E87.6 Hypokalemia; Y90.8 Blood alcohol level of 240 mg/100 ml or more; D69.6 Thrombocytopenia, unspecified
CPT/HCPCS: 36415; 76700; 80048; 80053; 80305; 82140; 82247; 82248; 82270; 82607; 82728; 82746; 83540; 83550; 85014; 85018; 85025; 85610; 86850; 86900; 86901; 86923; C9113; G0378; G0481; J0696; J1756; J2060; J2354; J3411; J3430; J3490; J7030; J7050

== ENCOUNTER 2022-08-15 23:37 | Emergency (ER) | payer OTHER ==
[~2022-08-15] VITALS: Ht 177.8 cm; Wt 113.4 kg
[~2022-08-15 23:37] MED LIST changes: -LEVO750T46 PO; +LEVO750T68 PO
[2022-08-16 00:12] LABS: BASOPHILS % (AUTO) 1.2 % (0.0-5.0); EOSINOPHILS % (AUTO) 1.9 % (0.0-8.0); HEMATOCRIT 31.7 % (42-54); LYMPHOCYTES % (AUTO) 39.7 % (21.0-51.0); MEAN CORPUSCULAR HEMOGLOBIN 20.3 pg (27.0-33.0); MEAN CORPUSCULAR VOLUME 69.8 fL (79-99); MONOCYTES % (AUTO) 8.9 % (3.0-13.0); NEUTROPHILS % (AUTO) 47.5 % (40.0-77.0); PLATELET COUNT (AUTO) 32 K/uL (130-400); RED BLOOD CELL COUNT(AUTO) 4.54 MIL/uL (4.50-6.20); RED CELL DISTRIBUTION WIDTH 22.5 % (11.0-15.5); WHITE BLOOD COUNT (AUTO) 2.6 K/uL (4.8-10.8)
[2022-08-16 00:15] LABS: CREATININE 0.7 mg/dL (0.5-1.5); POTASSIUM 3.3 mmol/L (3.5-5.1)
[2022-08-16 00:21] LABS: ALBUMIN 2.5 g/dL (3.5-5.0); TOTAL PROTEIN, SERUM 7.4 g/dL (6.0-8.3)
[2022-08-16] MEDS ORDERED: THIAMINE HCL 100 MG/ML 2ML VIAL ONE (00:39)
[2022-08-16] MEDS ORDERED: M.V.I. IV [ADULT] 10 ML VIAL IV ONE (00:39)
[2022-08-16] MEDS ORDERED: FOLIC ACID 5 MG/ML VIAL ONE (00:40)
[2022-08-16] MEDS ORDERED: M.V.I. IV [ADULT] 10 ML, FOLIC ACID 1 MG, THIAMINE HCL 100 MG in 0.9%NACL 1000ML 1,000 ML IV ONE (01:00)
[2022-08-16 01:01] LABS: BASOPHILS % (MANUAL) 1 % (0-2); EOSINOPHILS % (MANUAL) 2 % (1-6); LYMPHOCYTES % (MANUAL) 30 % (22-44); MAN.DIFF COMMENT-IMPRESSION MANUAL DIFFERENTIAL; SEGMENTED NEUTROPHILS % 67 % (40-70)
[2022-08-16 01:02] LABS: PLATELET MORPHOLOGY COMMENT DECREASED
[2022-08-16 12:15] VITALS: BP 137/87
== END 2022-08-16 12:20 | disposition home or self-care (01) ==
LOC: EDH 23:37
DX: F10.129 Alcohol abuse with intoxication, unspecified (principal); F17.200 Nicotine dependence, unspecified, uncomplicated; Z79.899 Other long term (current) drug therapy; Y90.8 Blood alcohol level of 240 mg/100 ml or more
CPT/HCPCS: 99285; 71045; 84484; 80053; 85025; 36415; 93005; 96365; 96366; J3411; J3490; J7030

== ENCOUNTER 2022-08-16 18:18 | Emergency (ER) | payer OTHER ==
[~2022-08-16] VITALS: Ht 177.8 cm; Wt 112.9 kg
[2022-08-16 19:26] LABS: HEMATOCRIT 28.8 % (42-54); LYMPHOCYTES % (AUTO) 24.5 % (21.0-51.0); MEAN CORPUSCULAR HEMOGLOBIN 20.5 pg (27.0-33.0); MEAN CORPUSCULAR HGB CONC 29.5 g/dL (32.0-36.0); MEAN CORPUSCULAR VOLUME 69.4 fL (79-99); NEUTROPHILS % (AUTO) 59.9 % (40.0-77.0); PLATELET COUNT (AUTO) 23 K/uL (130-400); RED BLOOD CELL COUNT(AUTO) 4.15 MIL/uL (4.50-6.20); RED CELL DISTRIBUTION WIDTH 22.5 % (11.0-15.5); WHITE BLOOD COUNT (AUTO) 1.9 K/uL (4.8-10.8)
[2022-08-16 19:33] LABS: CREATININE 0.6 mg/dL (0.5-1.5); INR 1.38 (0.85-1.15); POTASSIUM 3.6 mmol/L (3.5-5.1); PROTHROMBIN TIME 14.8 SEC (9.6-11.6)
[2022-08-16 19:34] LABS: PARTIAL THROMBOPLASTIN TIME 32.9 SEC (26.3-35.5)
[2022-08-16 19:38] LABS: ALBUMIN 2.4 g/dL (3.5-5.0); TOTAL PROTEIN, SERUM 7.3 g/dL (6.0-8.3)
[2022-08-16] MEDS: 0.9%NACL 1000ML 1,000 ML IV ONE (21:29)
[2022-08-16 22:09] LABS: APPEARANCE,URINE CLEAR (CLEAR); BILIRUBIN,URINE NEGATIVE (NEGATIVE); COLOR,URINE YELLOW (YELLOW); GLUCOSE, URINE (UA) NEGATIVE (NEGATIVE); KETONES,URINE 5 mg/dL (NEGATIVE); LEUKOCYTE ESTERASE ,URINE NEGATIVE Leu/uL (NEGATIVE); NITRATE,URINE NEGATIVE (NEGATIVE); OCCULT BLOOD,URINE NEGATIVE (NEGATIVE); PH,URINE 6.5 (5.0-8.0); PROTEIN,URINE NEGATIVE (NEGATIVE); UROBILINOGEN,URINE 3 mg/dL (0.2-1.0)
[2022-08-16 22:10] LABS: MUCUS,URINE RARE LPF (None Seen); RBC,URINE 0-1 /HPF (0-1); SQUAMOUS EPITHELIAL CELL,UR RARE /HPF (0-2); WBC,URINE 0-1 /HPF (0-1)
[2022-08-16 22:16] LABS: AMPHET/METH SCREEN,URINE NEGATIVE (NEGATIVE); BARBITURATE SCREEN, URINE NEGATIVE (NEGATIVE); BENZODIAZEPINES SCREEN,URINE NEGATIVE (NEGATIVE); CANNABINOID SCREEN,URINE NEGATIVE (NEGATIVE); COCAINE SCREEN,URINE NEGATIVE (NEGATIVE); OPIATE SCREEN,URINE NEGATIVE (NEGATIVE); PHENCYCLIDINE SCREEN,URINE NEGATIVE (NEGATIVE)
[2022-08-16 22:31] VITALS: BP 142/77
== END 2022-08-16 22:52 | disposition left against medical advice (07) ==
LOC: EDH 18:18
DX: K92.1 Melena (principal); Z53.21 Procedure and treatment not carried out due to patient leaving prior to being seen by health care provider
CPT/HCPCS: 36415; 80053; 80305; 81001; 82140; 85025; 85610; 85730; 86850; 86900; 86901; 96360

== ENCOUNTER 2022-08-30 14:54 | Emergency (ER) | payer OTHER ==
[~2022-08-30] VITALS: Ht 177.8 cm; Wt 108.9 kg
[2022-08-30 15:28] LABS: BASOPHILS % (AUTO) 0.9 % (0.0-5.0); EOSINOPHILS % (AUTO) 0.9 % (0.0-8.0); LYMPHOCYTES % (AUTO) 19.2 % (21.0-51.0); MEAN CORPUSCULAR HEMOGLOBIN 20.5 pg (27.0-33.0); MEAN CORPUSCULAR HGB CONC 28.8 g/dL (32.0-36.0); MEAN CORPUSCULAR VOLUME 71.1 fL (79-99); MONOCYTES % (AUTO) 18.4 % (3.0-13.0); NEUTROPHILS % (AUTO) 60.2 % (40.0-77.0); PLATELET COUNT (AUTO) 74 K/uL (130-400); RED BLOOD CELL COUNT(AUTO) 4.78 MIL/uL (4.50-6.20); RED CELL DISTRIBUTION WIDTH 22.5 % (11.0-15.5); WHITE BLOOD COUNT (AUTO) 2.3 K/uL (4.8-10.8)
[2022-08-30 15:37] LABS: POTASSIUM 4.5 mmol/L (3.5-5.1)
[2022-08-30 15:41] LABS: ALBUMIN 2.7 g/dL (3.5-5.0); TOTAL PROTEIN, SERUM 8.5 g/dL (6.0-8.3)
[2022-08-30 16:08] LABS: BAND NEUTROPHILS % (MANUAL) 9 % (0-2); LYMPHOCYTES % (MANUAL) 19 % (22-44); MAN.DIFF COMMENT-IMPRESSION MANUAL DIFFERENTIAL; MONOCYTES % (MANUAL) 11 % (2-9); REACTIVE LYMPHOCYTES 1 % (0-0); SEGMENTED NEUTROPHILS % 60 % (40-70)
[2022-08-30] MEDS ORDERED: MORPHINE 2 MG SYG IM ONE (18:30)
[2022-08-30] MEDS ORDERED: ACETAMINOPHEN 325 MG TAB PO ONE (18:30)
[2022-08-30 20:09] VITALS: BP 134/74
== END 2022-08-30 20:13 | disposition home or self-care (01) ==
LOC: EDH 14:54
DX: K42.9 Umbilical hernia without obstruction or gangrene (principal); K57.90 Diverticulosis of intestine, part unspecified, without perforation or abscess without bleeding; K74.60 Unspecified cirrhosis of liver; F17.200 Nicotine dependence, unspecified, uncomplicated; Z79.899 Other long term (current) drug therapy
CPT/HCPCS: 36415; 74176; 80053; 82140; 82270; 83690; 85025; 93005; 96372

== ENCOUNTER 2023-07-10 07:46 | Inpatient (IN) | payer SELFPAY ==
[~2023-07-10] VITALS: Ht 177.8 cm; Wt 113.0 kg
[2023-07-10] MEDS ORDERED: ONDANSETRON 4MG INJ IVP ONE (08:00)
[2023-07-10 08:18] LABS: BASOPHILS # (AUTO) 0.03 K/uL (0.00-0.20); BASOPHILS % (AUTO) 1.2 % (0.0-5.0); EOSINOPHILS % (AUTO) 4.1 % (0.0-8.0); HEMATOCRIT 34.8 % (42-54); IMMATURE GRANULOCYTE ABSOLUTE 0.05 K/uL (0-1); LYMPHOCYTES # (AUTO) 1.1 K/uL (1.0-4.8); LYMPHOCYTES % (AUTO) 43.7 % (21.0-51.0); MEAN CORPUSCULAR HEMOGLOBIN 20.2 pg (27.0-33.0); MEAN CORPUSCULAR HGB CONC 28.7 g/dL (32.0-36.0); MEAN CORPUSCULAR VOLUME 70.2 fL (79-99); MONOCYTES # (AUTO) 0.2 K/uL (0.1-1.0); MONOCYTES % (AUTO) 6.9 % (3.0-13.0); NEUTROPHILS % (AUTO) 42.1 % (40.0-77.0); PLATELET COUNT (AUTO) 28 K/uL (130-400); RED BLOOD CELL COUNT(AUTO) 4.96 MIL/uL (4.50-6.20); WHITE BLOOD COUNT (AUTO) 2.5 K/uL (4.8-10.8)
[2023-07-10 08:28] LABS: CREATININE 0.7 mg/dL (0.5-1.5); POTASSIUM 3.5 mmol/L (3.5-5.1)
[2023-07-10 08:29] LABS: INR 1.38 (0.85-1.15); PROTHROMBIN TIME 15.7 SEC (9.6-11.6)
[2023-07-10 08:31] LABS: PARTIAL THROMBOPLASTIN TIME 30.9 SEC (26.3-35.5)
[2023-07-10 08:33] LABS: ALBUMIN 2.5 g/dL (3.5-5.0); BILIRUBIN,TOTAL 2.5 mg/dL (0.2-1.0); TOTAL PROTEIN, SERUM 7.7 g/dL (6.0-8.3)
[2023-07-10] MEDS ORDERED: MORPHINE 2 MG SYG IVP ONE (09:30)
[2023-07-10 09:31] LABS: BAND NEUTROPHILS % (MANUAL) 2 % (0-2); BASOPHILS % (MANUAL) 2 % (0-2); EOSINOPHILS % (MANUAL) 3 % (1-6); LYMPHOCYTES % (MANUAL) 58 % (22-44); MAN.DIFF COMMENT-IMPRESSION MANUAL DIFFERENTIAL; MONOCYTES % (MANUAL) 3 % (2-9); SEGMENTED NEUTROPHILS % 32 % (40-70); TOTAL CELLS COUNTED 100; WBC MORPHOLOGY CONSISTENT W/DIFF
[2023-07-10 09:32] LABS: PLATELET MORPHOLOGY COMMENT MARKED DECREASE
[2023-07-10] MEDS ORDERED: ONDANSETRON 4MG INJ IV PRN (10:00)
[2023-07-10] MEDS ORDERED: LACTULOSE 20 GM/30 ML UDCUP PO PRN (10:00)
[2023-07-10] MEDS ORDERED: POTASSIUM CHLORIDE 20MEQ/100ML 100 ML IV ONE (10:00)
[2023-07-10] MEDS ORDERED: POTASSIUM CHLORIDE 20MEQ/100ML 100 ML IV PRN ×2 (10:00)
[2023-07-10 10:21] LABS: MAGNESIUM 1.8 mg/dL (1.80-2.40)
[2023-07-10 10:22] LABS: % IRON SATURATION 4.9 % (30-44)
[2023-07-10] MEDS: PANTOPRAZOLE 40 MG/VIAL IVP SCH (10:22)
[2023-07-10] MEDS: LACTULOSE 20 GM/30 ML UDCUP PO SCH ×6 (10:22→23:06)
[2023-07-10 11:40] VITALS: BP 123/81; PULSE 91; RESP 20
[2023-07-10] MEDS ORDERED: FUROSEMIDE 20MG VIAL IV SCH (12:30)
[2023-07-10] MEDS ORDERED: PHARMACY COMMUNICATION MISC PRN (12:30)
[2023-07-10] MEDS ORDERED: COMPOUND IV REFRIGERATED 1 EACH IVSOLN MISC PRN (13:00)
[2023-07-10] MEDS: MORPHINE 2 MG SYG IVP PRN ×2 (14:26→23:07)
[2023-07-10] MEDS: SPIRONOLACTONE 25 MG TAB PO SCH (14:26)
[2023-07-10] MEDS: RIFAXIMIN 550 MG TABLET PO SCH ×2 (14:26→20:05)
[2023-07-10] MEDS: THIAMINE HCL 100 MG, FOLIC ACID 1 MG, M.V.I. IV [ADULT] 10 ML in 0.9%NACL 1000ML 1,000 ML IV SCH (14:27)
[2023-07-10 16:00] VITALS: BP 113/75; PULSE 92; RESP 18
[2023-07-10] MEDS ORDERED: DiphenhydrAMINE HCL 50 MG/ML VIAL IV PRN (17:00)
[2023-07-10 20:05] VITALS: O2SAT 97
[2023-07-10] MEDS: MAGNESIUM 2GM PREMIX 50ML 50 ML IV PRN (20:05)
[2023-07-10 20:06] VITALS: BP 126/81; PULSE 81; RESP 18
[2023-07-10] MEDS ORDERED: RIFAXIMIN 550 MG TABLET PO SCH (21:00)
[2023-07-10] MEDS: HYDROCODONE/ACETAMINOPHEN 5/325 MG TAB PO PRN (21:19)
[2023-07-10] MEDS ORDERED: LACT10SO76 PO (22:55)
[2023-07-10 23:28] LABS: SARS-CoV-2, RNA, NAAT NEGATIVE SARS CoV-2 (NEGATIVE)
[2023-07-10 23:33] LABS: INFLUENZA TYPE A Negative For Type A (NEGATIVE); INFLUENZA TYPE B Negative For Type B (NEGATIVE)
[2023-07-11] VITALS: BP 131/81; PULSE 89; RESP 18
[2023-07-11 01:07] LABS: APPEARANCE,URINE CLEAR (CLEAR); BILIRUBIN,URINE NEGATIVE (NEGATIVE); COLOR,URINE YELLOW (YELLOW); GLUCOSE, URINE (UA) NEGATIVE (NEGATIVE); KETONES,URINE NEGATIVE (NEGATIVE); LEUKOCYTE ESTERASE ,URINE NEGATIVE Leu/uL (NEGATIVE); NITRATE,URINE NEGATIVE (NEGATIVE); OCCULT BLOOD,URINE NEGATIVE (NEGATIVE); PH,URINE 5.5 (5.0-8.0); PROTEIN,URINE NEGATIVE (NEGATIVE)
[2023-07-11 01:08] LABS: ADD UA MICROSCOPIC YES
[2023-07-11 01:09] LABS: MUCUS,URINE RARE LPF (None Seen); RBC,URINE 0-1 /HPF (0-1); WBC,URINE 0-1 /HPF (0-1)
[2023-07-11 01:25] LABS: AMPHET/METH SCREEN,URINE NEGATIVE (NEGATIVE); BARBITURATE SCREEN, URINE NEGATIVE (NEGATIVE); BENZODIAZEPINES SCREEN,URINE NEGATIVE (NEGATIVE); CANNABINOID SCREEN,URINE NEGATIVE (NEGATIVE); COCAINE SCREEN,URINE NEGATIVE (NEGATIVE); OPIATE SCREEN,URINE POSITIVE (NEGATIVE); PHENCYCLIDINE SCREEN,URINE NEGATIVE (NEGATIVE)
[2023-07-11] MEDS: FUROSEMIDE 20MG VIAL IV SCH ×2 (03:45→15:30)
[2023-07-11] MEDS: HYDROCODONE/ACETAMINOPHEN 5/325 MG TAB PO PRN ×3 (03:48→22:56)
[2023-07-11 04:00] VITALS: BP 117/73; PULSE 86; RESP 18
[2023-07-11] MEDS ORDERED: LORAZEPAM 2 MG/ML 1 ML VIAL IVP PRN (05:00)
[2023-07-11] MEDS ORDERED: CHLORDIAZEPOXIDE HCL 25 MG CAP PO PRN (05:00)
[2023-07-11 06:23] LABS: BASOPHILS # (AUTO) 0.03 K/uL (0.00-0.20); BASOPHILS % (AUTO) 2.2 % (0.0-5.0); EOSINOPHILS # (AUTO) 0.05 K/uL (0.00-0.70); EOSINOPHILS % (AUTO) 3.7 % (0.0-8.0); HEMATOCRIT 30.9 % (42-54); LYMPHOCYTES # (AUTO) 0.4 K/uL (1.0-4.8); LYMPHOCYTES % (AUTO) 30.4 % (21.0-51.0); MEAN CORPUSCULAR HGB CONC 28.2 g/dL (32.0-36.0); MONOCYTES # (AUTO) 0.2 K/uL (0.1-1.0); MONOCYTES % (AUTO) 14.8 % (3.0-13.0); NEUTROPHILS # (AUTO) 0.7 K/uL (1.8-7.7); NEUTROPHILS % (AUTO) 48.9 % (40.0-77.0); PLATELET COUNT (AUTO) 36 K/uL (130-400); RED BLOOD CELL COUNT(AUTO) 4.35 MIL/uL (4.50-6.20); RED CELL DISTRIBUTION WIDTH 21.4 % (11.0-15.5); WHITE BLOOD COUNT (AUTO) 1.4 K/uL (4.8-10.8)
[2023-07-11 06:38] LABS: ALBUMIN 2.3 g/dL (3.5-5.0); BILIRUBIN,TOTAL 2.4 mg/dL (0.2-1.0); CREATININE 0.7 mg/dL (0.5-1.5); POTASSIUM 3.8 mmol/L (3.5-5.1); TOTAL PROTEIN, SERUM 7.2 g/dL (6.0-8.3)
[2023-07-11 06:44] LABS: INR 1.46 (0.85-1.15); PROTHROMBIN TIME 16.5 SEC (9.6-11.6)
[2023-07-11 08:00] VITALS: BP 123/89; PULSE 93; RESP 20; O2SAT 95
[2023-07-11] MEDS: FOLIC ACID 1 MG TABLET PO SCH (08:17)
[2023-07-11] MEDS: LACTULOSE 20 GM/30 ML UDCUP PO SCH ×4 (08:17→21:00)
[2023-07-11] MEDS: MULTIVITAMIN TABLET PO SCH (08:17)
[2023-07-11] MEDS: SPIRONOLACTONE 25 MG TAB PO SCH (08:17)
[2023-07-11] MEDS: RIFAXIMIN 550 MG TABLET PO SCH ×2 (08:18→20:05)
[2023-07-11] MEDS: PANTOPRAZOLE 40 MG/VIAL IVP SCH (08:18)
[2023-07-11] MEDS: MORPHINE 2 MG SYG IVP PRN ×2 (08:26→20:15)
[2023-07-11] MEDS: ZOSYN 3.375GM +NS 50ML IV SCH ×2 (11:02→17:58)
[2023-07-11] MEDS: ONDANSETRON 4MG INJ IV PRN (11:04)
[2023-07-11 12:00] VITALS: BP 130/87; PULSE 95; RESP 20
[2023-07-11] MEDS: THIAMINE HCL 100 MG, FOLIC ACID 1 MG, M.V.I. IV [ADULT] 10 ML in 0.9%NACL 1000ML 1,000 ML IV SCH (13:31)
[2023-07-11] MEDS: KCL 20 MEQ ERTAB PO PRN ×2 (15:35→18:02)
[2023-07-11 16:00] VITALS: BP 137/84; PULSE 103; RESP 20
[2023-07-11 19:20] VITALS: BP 136/79; PULSE 104; RESP 20
[2023-07-12] VITALS (16 sets, daily range): BP systolic 100–128; BP diastolic 51–80; PULSE 80–95; RESP 12–20; O2SAT 93–95
[2023-07-12] MEDS: FUROSEMIDE 20MG VIAL IV SCH ×2 (04:25→16:44)
[2023-07-12] MEDS: MORPHINE 2 MG SYG IVP PRN ×3 (04:31→22:54)
[2023-07-12] MEDS: ZOSYN 3.375GM +NS 50ML IV SCH ×3 (04:32→17:48)
[2023-07-12 07:02] LABS: BASOPHILS # (AUTO) 0.01 K/uL (0.00-0.20); BASOPHILS % (AUTO) 0.9 % (0.0-5.0); EOSINOPHILS # (AUTO) 0.06 K/uL (0.00-0.70); EOSINOPHILS % (AUTO) 5.2 % (0.0-8.0); LYMPHOCYTES # (AUTO) 0.3 K/uL (1.0-4.8); MEAN CORPUSCULAR HEMOGLOBIN 19.7 pg (27.0-33.0); MEAN CORPUSCULAR HGB CONC 27.9 g/dL (32.0-36.0); MEAN CORPUSCULAR VOLUME 70.7 fL (79-99); MONOCYTES # (AUTO) 0.2 K/uL (0.1-1.0); MONOCYTES % (AUTO) 13.9 % (3.0-13.0); NEUTROPHILS # (AUTO) 0.6 K/uL (1.8-7.7); PLATELET COUNT (AUTO) 32 K/uL (130-400); RED BLOOD CELL COUNT(AUTO) 3.96 MIL/uL (4.50-6.20); RED CELL DISTRIBUTION WIDTH 21.1 % (11.0-15.5); WHITE BLOOD COUNT (AUTO) 1.2 K/uL (4.8-10.8)
[2023-07-12 07:16] LABS: INR 1.58 (0.85-1.15); PROTHROMBIN TIME 17.8 SEC (9.6-11.6)
[2023-07-12 07:20] LABS: ALBUMIN 2.3 g/dL (3.5-5.0); BILIRUBIN,TOTAL 3.2 mg/dL (0.2-1.0); CREATININE 0.7 mg/dL (0.5-1.5); POTASSIUM 3.4 mmol/L (3.5-5.1); TOTAL PROTEIN, SERUM 6.8 g/dL (6.0-8.3)
[2023-07-12] MEDS: HYDROCODONE/ACETAMINOPHEN 5/325 MG TAB PO PRN ×2 (07:40→19:25)
[2023-07-12] MEDS: LACTULOSE 20 GM/30 ML UDCUP PO SCH ×3 (08:28→19:20)
[2023-07-12] MEDS: FOLIC ACID 1 MG TABLET PO SCH (08:28)
[2023-07-12] MEDS: RIFAXIMIN 550 MG TABLET PO SCH ×2 (08:28→20:43)
[2023-07-12] MEDS: PANTOPRAZOLE 40 MG/VIAL IVP SCH (08:29)
[2023-07-12] MEDS: MULTIVITAMIN TABLET PO SCH (08:29)
[2023-07-12] MEDS: SPIRONOLACTONE 25 MG TAB PO SCH (08:29)
[2023-07-12] MEDS ORDERED: ALBUMIN (HUMAN) 25% 200 ML IV SCH (11:30)
[2023-07-12] MEDS ORDERED: THIAMINE HCL 100 MG/ML 2ML VIAL IVP ONE (12:00)
[2023-07-12 14:14] LABS: BODY FLUID RBC 1006 /cu. mm.; BODY FLUID WBC 41 /cu. mm.
[2023-07-12 14:17] LABS: APPEARANCE BODY FLUID CLEAR (CLEAR); COLOR,BODY FLUID YELLOW (LT YELLOW); SPECIMENTYPE,BODY FLUID ASCITES
[2023-07-12 14:18] LABS: TOTAL VOLUME,BODY FLUID 15000 mL
[2023-07-12 14:46] LABS: BF LYMPHOCYTE 28 %; BF MESOTHELIAL 56 %; BF MONOCYTE 16 %; BF TOTAL CELLS COUNTED 100
[2023-07-12] MEDS: THIAMINE HCL 100 MG, FOLIC ACID 1 MG, M.V.I. IV [ADULT] 10 ML in 0.9%NACL 1000ML 1,000 ML IV SCH (15:48)
[2023-07-12 17:38] LABS: HEMATOCRIT 26.6 % (42-54)
[2023-07-12] MEDS: POTASSIUM CHLORIDE 10% ELIXIR 20 MEQ/15 ML UDCUP PO PRN ×2 (18:54→19:25)
[2023-07-13] VITALS (7 sets, daily range): BP systolic 101–115; BP diastolic 61–74; PULSE 79–100; RESP 16–20; O2SAT 95
[2023-07-13] MEDS: ZOSYN 3.375GM +NS 50ML IV SCH ×3 (02:28→18:45)
[2023-07-13] MEDS: FUROSEMIDE 20MG VIAL IV SCH ×2 (04:03→15:59)
[2023-07-13] MEDS: HYDROCODONE/ACETAMINOPHEN 5/325 MG TAB PO PRN (05:03)
[2023-07-13 06:15] LABS: BASOPHILS # (AUTO) 0.01 K/uL (0.00-0.20); BASOPHILS % (AUTO) 0.9 % (0.0-5.0); EOSINOPHILS # (AUTO) 0.03 K/uL (0.00-0.70); EOSINOPHILS % (AUTO) 2.8 % (0.0-8.0); HEMATOCRIT 26.9 % (42-54); IMMATURE GRANULOCYTE ABSOLUTE 0.01 K/uL (0-1); LYMPHOCYTES # (AUTO) 0.3 K/uL (1.0-4.8); LYMPHOCYTES % (AUTO) 25.5 % (21.0-51.0); MEAN CORPUSCULAR HEMOGLOBIN 20.2 pg (27.0-33.0); MEAN CORPUSCULAR HGB CONC 28.6 g/dL (32.0-36.0); MEAN CORPUSCULAR VOLUME 70.6 fL (79-99); MONOCYTES # (AUTO) 0.1 K/uL (0.1-1.0); MONOCYTES % (AUTO) 12.3 % (3.0-13.0); NEUTROPHILS # (AUTO) 0.6 K/uL (1.8-7.7); NEUTROPHILS % (AUTO) 57.6 % (40.0-77.0); PLATELET COUNT (AUTO) 20 K/uL (130-400); RED BLOOD CELL COUNT(AUTO) 3.81 MIL/uL (4.50-6.20); RED CELL DISTRIBUTION WIDTH 21.2 % (11.0-15.5)
[2023-07-13 06:22] LABS: CREATININE 0.6 mg/dL (0.5-1.5); MAGNESIUM 1.6 mg/dL (1.80-2.40); POTASSIUM 3.7 mmol/L (3.5-5.1)
[2023-07-13 06:24] LABS: WHITE BLOOD COUNT (AUTO) 1.1 K/uL (4.8-10.8)
[2023-07-13] MEDS: MAGNESIUM 2GM PREMIX 50ML 50 ML IV PRN (07:29)
[2023-07-13] MEDS: PANTOPRAZOLE 40 MG/VIAL IVP SCH (08:21)
[2023-07-13] MEDS: SPIRONOLACTONE 25 MG TAB PO SCH (08:21)
[2023-07-13] MEDS: FOLIC ACID 1 MG TABLET PO SCH (08:21)
[2023-07-13] MEDS: LACTULOSE 20 GM/30 ML UDCUP PO SCH ×3 (08:21→15:59)
[2023-07-13] MEDS: MULTIVITAMIN TABLET PO SCH (08:21)
[2023-07-13] MEDS: RIFAXIMIN 550 MG TABLET PO SCH (08:32)
[2023-07-13] MEDS ORDERED: THIAMINE HCL 100 MG/ML 2ML VIAL IVP SCH (09:00)
[2023-07-13] MEDS ORDERED: TBO-FILGRASTIM 300 MCG/0.5 ML ML SQ ONE (13:30)
[2023-07-13] MEDS: ONDANSETRON 4MG INJ IV PRN (14:03)
[2023-07-13] MEDS ORDERED: LACTULOSE 20 GM/30 ML UDCUP PO SCH (21:00)
[2023-07-14] MEDS ORDERED: IRON SUCROSE COMPLEX 300 MG in 0.9% NACL 250ML 250 ML IV ONE (12:00)
[2023-07-15 10:14] LABS: FREE KAPPA LIGHT CHAINS,S 56.2 mg/L (3.3-19.4)
[2023-07-15 21:08] LABS: ALBUMIN (IFE & ELECTROPHOR) 2.7 g/dL (2.9-4.4); ALBUMIN/GLOBULIN RATIO (IFE) 0.8 (0.7-1.7); ALPHA-1 (IFE & PEP) 0.2 g/dL (0.0-0.4); ALPHA-2 (IFE & PEP) 0.3 g/dL (0.4-1.0); GAMMA GLOBULINS (IFE & ELP) 2.1 g/dL (0.4-1.8); GLOBULIN TOTAL (IFE) 3.5 g/dL (2.2-3.9); IGA (IFE) 761 mg/dL (90-386); IGG (IMMUNOFIXATION) 2069 mg/dL (603-1613); IGM (IMMUNOFIXATION) 158 mg/dL (20-172); IMMUNOFIXATION RESULT Note: (.); M-SPIKE (IEP) Not Observed g/dL (Not Observed); TOTAL PROTEIN 6.2 g/dL (6.0-8.5)
== END 2023-07-13 21:10 | disposition left against medical advice (07) | DRG 432 ==
LOC: EDH 07:46 → EDHIP 07:47 → 3DH 11:58
PROVIDERS: ADMIT Internal Medicine; ATTEND Internal Medicine
PROC: 30233R1 Transfusion of Nonautologous Platelets into Peripheral Vein, Percutaneous Approach (ICD-10-PCS; 2023-07-10)
PROC: 0W9G3ZZ Drainage of Peritoneal Cavity, Percutaneous Approach (ICD-10-PCS; principal; 2023-07-12)
DX: K70.31 Alcoholic cirrhosis of liver with ascites (principal); I50.33 Acute on chronic diastolic (congestive) heart failure; D61.818 Other pancytopenia; I11.0 Hypertensive heart disease with heart failure; Z20.822 Contact with and (suspected) exposure to COVID-19; K76.82 Hepatic encephalopathy; R16.1 Splenomegaly, not elsewhere classified; F10.229 Alcohol dependence with intoxication, unspecified; Z68.39 Body mass index [BMI] 39.0-39.9, adult; K59.00 Constipation, unspecified; D70.9 Neutropenia, unspecified; E66.09 Other obesity due to excess calories; Z53.29 Procedure and treatment not carried out because of patient's decision for other reasons; Z91.148 Patient's other noncompliance with medication regimen for other reason
CPT/HCPCS: 36415; 36430; 49083; 70450; 71045; 76700; 80048; 80053; 80305; 81001; 82140; 82270; 83521; 83540; 83550; 83605; 83735; 83880; 85014; 85018; 85025; 85610; 85730; 86334; 86850; 86900; 86901; 87040; 87071; 87205; 87635; 87804; 89051; 93970; C1729; C9113; G0378; J1200; J1940; J2270; J2405; J2543; J3411; J3475; J3480; J3490; J7030; P9034; P9046; J1447

== ENCOUNTER 2023-07-25 00:32 | Emergency (ER) | payer OTHER ==
[~2023-07-25] VITALS: Ht 180.3 cm; Wt 117.9 kg
[~2023-07-25 00:32] MED LIST changes: -FERR-82 PO; -FOLI1 PO; +LACT10SO76 PO; -LACT10SO9 PO; -LEVO750T68 PO; -MULT-1367 PO; -ONDA-104 PO; -ONDA4TAB10 PO
[2023-07-25 01:10] LABS: APPEARANCE,URINE CLEAR (CLEAR); BILIRUBIN,URINE 1 mg/dL (NEGATIVE); COLOR,URINE DARK-YELLOW (YELLOW); GLUCOSE, URINE (UA) NEGATIVE (NEGATIVE); KETONES,URINE NEGATIVE (NEGATIVE); LEUKOCYTE ESTERASE ,URINE NEGATIVE Leu/uL (NEGATIVE); NITRATE,URINE NEGATIVE (NEGATIVE); OCCULT BLOOD,URINE NEGATIVE (NEGATIVE); PROTEIN,URINE 50 mg/dL (NEGATIVE); UROBILINOGEN,URINE 12 mg/dL (0.2-1.0)
[2023-07-25 01:11] LABS: BASOPHILS # (AUTO) 0.03 K/uL (0.00-0.20); BASOPHILS % (AUTO) 1.1 % (0.0-5.0); EOSINOPHILS # (AUTO) 0.03 K/uL (0.00-0.70); EOSINOPHILS % (AUTO) 1.1 % (0.0-8.0); HEMATOCRIT 30.6 % (42-54); IMMATURE GRANULOCYTE ABSOLUTE 0.01 K/uL (0-1); LYMPHOCYTES # (AUTO) 0.6 K/uL (1.0-4.8); LYMPHOCYTES % (AUTO) 22.2 % (21.0-51.0); MEAN CORPUSCULAR HEMOGLOBIN 20.1 pg (27.0-33.0); MEAN CORPUSCULAR HGB CONC 30.1 g/dL (32.0-36.0); MONOCYTES # (AUTO) 0.3 K/uL (0.1-1.0); NEUTROPHILS # (AUTO) 1.8 K/uL (1.8-7.7); NEUTROPHILS % (AUTO) 65.2 % (40.0-77.0); PLATELET COUNT (AUTO) 28 K/uL (130-400); RED BLOOD CELL COUNT(AUTO) 4.57 MIL/uL (4.50-6.20); WHITE BLOOD COUNT (AUTO) 2.8 K/uL (4.8-10.8)
[2023-07-25 01:15] LABS: ADD UA MICROSCOPIC YES
[2023-07-25 01:17] LABS: CREATININE 0.7 mg/dL (0.5-1.5)
[2023-07-25 01:17] LABS: CALCIUM OXALATE CRYSTALS,UR RARE /LPF (None Seen); MUCUS,URINE MANY LPF (None Seen); SQUAMOUS EPITHELIAL CELL,UR RARE /HPF (0-2)
[2023-07-25 01:18] LABS: INR 1.43 (0.85-1.15); PROTHROMBIN TIME 16.2 SEC (9.6-11.6)
[2023-07-25 01:19] LABS: PARTIAL THROMBOPLASTIN TIME 34.5 SEC (26.3-35.5)
[2023-07-25 01:21] LABS: ALBUMIN 2.3 g/dL (3.5-5.0); BILIRUBIN,TOTAL 2.2 mg/dL (0.2-1.0); TOTAL PROTEIN, SERUM 7.3 g/dL (6.0-8.3)
[2023-07-25 01:24] LABS: B-TYPE NATRIURETIC PEPTIDE < 5 pg/mL (0-100)
[2023-07-25 01:24] LABS: AMPHET/METH SCREEN,URINE NEGATIVE (NEGATIVE); BARBITURATE SCREEN, URINE NEGATIVE (NEGATIVE); BENZODIAZEPINES SCREEN,URINE POSITIVE (NEGATIVE); CANNABINOID SCREEN,URINE NEGATIVE (NEGATIVE); COCAINE SCREEN,URINE NEGATIVE (NEGATIVE); OPIATE SCREEN,URINE NEGATIVE (NEGATIVE); PHENCYCLIDINE SCREEN,URINE NEGATIVE (NEGATIVE)
[2023-07-25 01:27] LABS: AMMONIA 77 umol/L (11-32)
[2023-07-25 01:30] LABS: BAND NEUTROPHILS % (MANUAL) 6 % (0-2); BASOPHILS % (MANUAL) 4 % (0-2); EOSINOPHILS % (MANUAL) 2 % (1-6); LYMPHOCYTES % (MANUAL) 22 % (22-44); MAN.DIFF COMMENT-IMPRESSION MANUAL DIFFERENTIAL; MONOCYTES % (MANUAL) 4 % (2-9); SEGMENTED NEUTROPHILS % 62 % (40-70); TOTAL CELLS COUNTED 100; WBC MORPHOLOGY CONSISTENT W/DIFF
[2023-07-25 01:32] LABS: ALCOHOL, BLOOD 452 mg/dL (0-10)
[2023-07-25 05:16] VITALS: BP 112/76; PULSE 86; RESP 16; O2SAT 96
== END 2023-07-25 05:16 | disposition home or self-care (01) ==
LOC: EDH 00:32
DX: K70.31 Alcoholic cirrhosis of liver with ascites (principal); F10.129 Alcohol abuse with intoxication, unspecified; D61.818 Other pancytopenia; K43.9 Ventral hernia without obstruction or gangrene; Y90.8 Blood alcohol level of 240 mg/100 ml or more
CPT/HCPCS: 36415; 71045; 80053; 80305; 81001; 82140; 82550; 83880; 84484; 85025; 85610; 85730; 93005

== ENCOUNTER → 2025-04-09 | Outpatient (CLI) | payer OTHER ==
[~2025-04-09] MED LIST changes: +FURO40TA5 PO; +LIDOCAINE HCL 1% 20 ML VIAL MISC ONE; +SPIR100T5 PO
--- NOTE | 2025-04-09 10:00 | NUR ---
ULTRASOUND GUIDED PARACENTESIS PROCEDURE PERFORMED BY DR. ALBERTO AMADOR. PUNCTURE SITE LLQ AND PATIENT TOLERATED PROCEDURE WELL. TOTAL REMOVED 600 MILLITERS OF CLOUDY, DEB ASCITES FLUUD. SPECIMEN SENT TO LAB. END OF PROCEDURE AT 0940. CATHETER REMOVED AND DRESSING APPLIED- NO BLEEDING NOTED. DISCHARGE INSTRUCTIONS GIVEN TO PATIENT AND VERBALIZED UNDERSTANDING. PATIENT DISCHARGED AMBULATORY- ALERT WITH NO C/O PAIN.
[2025-04-09 10:16] LABS: INR 1.38 (0.85-1.15)
--- NOTE | 2025-04-09 15:27 | HMCIMG ---
US ABDOMINAL PARACENTESIS IR REASON: ASCITES TECHNIQUE: This procedure was performed by Malick Yanes MD. Paracentesis was performed with ultrasound guidance. The puncture site was selected in the left lower quadrant and overlying skin prepped and draped in a sterile fashion. 1% Xylocaine infiltration was performed. Catheter was placed in the fluid using trocar technique. 6 L were removed. Fluid sample was submitted for laboratory evaluation. The patient showed no evidence of complication during the procedure. The patient tolerated the procedure well IMPRESSION: 1. Ultrasound-guided paracentesis. 2. 6 L of fluid was removed This procedure was performed along with radiologist Flor Aguiar MD
== END | disposition home or self-care (01) ==
LOC: RAH 08:43
PROVIDERS: ATTEND Internal Medicine Hepatology
DX: R18.8 Other ascites (principal); K70.30 Alcoholic cirrhosis of liver without ascites; K21.9 Gastro-esophageal reflux disease without esophagitis; F41.9 Anxiety disorder, unspecified; Z79.899 Other long term (current) drug therapy
CPT/HCPCS: 49083; 85610; 85730; 87071; 87205; 36415; 88108; 88305; C1729

== ENCOUNTER 2025-07-02 21:19 | Emergency (ER) | payer OTHER ==
[~2025-07-02] VITALS: Ht 177.8 cm; Wt 119.3 kg
[~2025-07-02 21:19] MED LIST changes: -FURO-152 PO; -LIDOCAINE HCL 1% 20 ML VIAL MISC ONE; -SPIR25TA6 PO
[2025-07-02 21:22] VITALS: BP 106/59; PULSE 77; RESP 20; TEMP 97.2
--- NOTE | 2025-07-02 21:42 | NUR ---
AFTER SPEAKING WITH DECIDED TO LEAVE ER, WALKED OUT.
--- NOTE | 2025-07-02 21:43 | NUR ---
AFTER SPEAKING WITH ED MD DECIDED TO LEAVE ER, WALKED OUT. PATIENT REINFORCED RISKS AND CONCEQUENCES INVOLVED WITH LEAVING HOSPITAL AT THIS TIME INCLUDING OR BODILY HARM. PATIENT STILL REQUESTING TO LEAVE AMA; PATIENT EDUCATED TO RETURN TO NEAREST ED OR CALL 911 FOR RETURN OR WORSENING OF SIGNS AND SYMPTOMS. PATIENT STATED UNDERSTANDING AND REFUSING TO SIGN AMA FORM.
[2025-07-02 21:47] LABS: IMMATURE GRANULOCYTE ABSOLUTE 0.02 K/uL (0-1); NUCLEATED RED BLOOD CELLS 0.0 % (0.0-0.19); PLATELET COUNT (AUTO) 36 K/uL (130-400); RED BLOOD CELL COUNT(AUTO) 4.73 MIL/uL (4.50-6.20); RED CELL DISTRIBUTION WIDTH 15.9 % (11.0-15.5); WHITE BLOOD COUNT (AUTO) 3.3 K/uL (4.8-10.8)
--- NOTE | 2025-07-02 21:47 | ERN ---
General Chief Complaint: Abdominal Pain Stated Complaint: C/O ABD PAIN W/NAUSEA,HEADACHE,SOB Time Seen by MD: 21:21 History of Present Illness Initial Comments 50-year-old male history of liver cirrhosis here for evaluation of right upper quadrant pain that radiates to his back. Patient states that he was concerned that his liver cirrhosis might be acting up thus he decided to come to the emergency room. Allergies: Coded Allergies: No Known Drug Intolerances (Unverified Allergy, Unknown, 07/09/21) Home Meds Reported Medications Furosemide (Furosemide) 40 Mg Tablet, 60 MG PO DAILY, TAB 04/23/25 Spironolactone (Spironolactone) 100 Mg Tablet, 1 TAB PO DAILY 04/23/25 Lactulose (Constulose) 10 Gram/15 Ml Solution, 30 ML PO BID 07/10/23 Pantoprazole Sodium (Protonix) 40 Mg Ectab, 40 MG PO DAILY for heart burn, TAB.EC 07/11/21 Past Medical History Past Medical History: Other Medical History Other: HX OF CIRRHOSIS OF LIVER, GALLSTONES Past Surgical History: Other Surgical History Other: HERNIA REPAIR X 2; BOWEL RESECTION Family History Family History: Negative Social History Social History: Smokers, ETOH, Lives with family Gastrointestinal/Abdominal: (+) abdominal pain Review of Systems: was completed, & the rest were negative. Physical Exam General Appearance: (+) no apparent distress Orientation: (+) alert, (+) oriented x 3 Head/Face Trauma: No MDM 50-year-old male here for evaluation of abdominal pain. States he would like morphine or Dilaudid at this time. I had an extensive conversation with the patient that I would not give him any medications until I fully evaluate him. He was upset at this and demanded either of those medications. He states that NSAIDs or Tylenol do not work for him nor was he advised by his prior doctors that those work. When I told him I would not give him that medication until I fully evaluate him he got upset. I told him I would give him two of morphine but he states that he will wanted more. He got upset and decided to leave/eloped. ED Course Orders Procedure Category Date Status Time Hepatic Function Panel LAB 07/02/25 Logged 21:30 Basic Metabolic Panel LAB 07/02/25 Logged 21:30 Cbc With Differential LAB 07/02/25 Logged 21:30 Lipase LAB 07/02/25 Logged 21:30 Lactic Acid LAB 07/02/25 Logged 21:30 Vital Signs Date Time Temp Pulse Resp B/P (MAP) Pulse Ox O2 Delivery O2 Flow Rate FiO2 07/02/25 21:22 97.2 77 20 106/59 97 Room Air DX & DISP Disposition: AMA Departure Impression: Primary Impression: Acute abdominal pain Condition: Stable Referrals: NONE (PCP) BOBBY ROMERO MD Jul 02, 2025 21:47
[2025-07-02 21:58] LABS: CREATININE 0.9 mg/dL (0.5-1.3); GLOMERULAR FILTR. RATE CALC 105.0 mL/min (>90); GLUCOSE,RANDOM 66.0 mg/dL (70-105); SODIUM SERUM 136.0 mmol/L (136-145); UREA NITROGEN, BLOOD 13.0 mg/dL (7-18)
[2025-07-02 22:02] LABS: ASPARTATE AMINOTRANSFERASE 68.0 U/L (10-37); TOTAL PROTEIN, SERUM 6.8 g/dL (6.0-8.3)
[2025-07-02 22:06] LABS: PLATELET MORPHOLOGY COMMENT MARKED DECREASE
== END 2025-07-02 21:47 | disposition left against medical advice (07) ==
LOC: EDH 21:19
DX: R10.11 Right upper quadrant pain (principal); F17.200 Nicotine dependence, unspecified, uncomplicated; Z79.899 Other long term (current) drug therapy; Z98.890 Other specified postprocedural states
CPT/HCPCS: 36415; 80048; 80076; 83605; 83690; 85025; 99283

== ENCOUNTER 2025-07-21 04:05 | Emergency (ER) | payer OTHER ==
[~2025-07-21] VITALS: Ht 177.8 cm; Wt 127.0 kg
--- NOTE | 2025-07-21 04:27 | ERN ---
ED Note History of Present Illness Stated Complaint: SOB, ABD PAIN, WEIGHT GAIN Chief Complaint: Multiple Complaints Time Seen by MD: 04:07 Dictation: Patient is a 50-year-old male with a past medical history of cirrhosis, status post tips who presents to emergency department complaining of abdominal pain localized in the epigastric area with radiation to the right upper quadrant. Patient stated that he was told that he has stones in the gallbladder. Patient reports pain times two months. I review his chart, since the patient had a CT abdomen and pelvis ultrasound done at this facility 2 months ago without acute findings to explain his pain. Allergies: Coded Allergies: No Known Drug Intolerances (Unverified Allergy, Unknown, 07/09/21) Home Meds Reported Medications Furosemide (Furosemide) 40 Mg Tablet, 60 MG PO DAILY, TAB 04/23/25 Spironolactone (Spironolactone) 100 Mg Tablet, 1 TAB PO DAILY 04/23/25 Lactulose (Constulose) 10 Gram/15 Ml Solution, 30 ML PO BID 07/10/23 Pantoprazole Sodium (Protonix) 40 Mg Ectab, 40 MG PO DAILY for heart burn, TAB.EC 07/11/21 Past Medical History Past Medical History: Other Additional Past Medical Hx: CIRRHOSIS OF LIVER, GALLSTONES Surgical History: Other Surgical History Other: HERNIA REPAIR X 2; BOWEL RESECTION, TIPPS Family History: Negative Social History: Smokers, ETOH, Lives with family Review of System Dictation NEGATIVE EXCEPT PER HPI Constitutional: Negative for fever,chills, and weight loss Eyes: Negative for injury, pain,redness, and discharge ENT: Negative for injury,pain or swelling Cardiovascular: denies chest pain, palpitations, and edema Respiratory: Negative for shortness of breath, cough, and wheezing, Abdomen/GI: Abdominal pain. Back: Negative for injury and pain : Negative for injury, bleeding and discharge MS/Extremity: Negative for injury and deformity Skin: Negative for rash, and discoloration Neuro: Negative for headache, weakness, numbness, tingling, and seizure Psych: Negative for suicide ideation, homicidal ideation, and hallucinations Initial Vital Sign VS Vital Signs Date Time Temp Pulse Resp B/P (MAP) Pulse Ox O2 Delivery O2 Flow Rate FiO2 07/21/25 04:07 97.0 79 20 137/84 98 Room Air 07/21/25 05:14 0 21 Physical Exam Dictation General: awake, alert, NAD Head/Face: Normocephalic, atraumatic Eyes: PERRL, EOMI, vision at baseline ENT: oral cavity clear, TMs clear, no signs of infection Neck: Trachea midline, supple, no nuchal rigidity Cardiovascular: RRR, normal S1/S2, No MRGs, no JVD Respiratory: CTAB, no respiratory distress, No rales or wheezes Abdomen: Soft , epigastric tenderness. Skin: Warm, dry, normal turgor, no rash MS/Extremity: Pulses equal, no cyanosis, neurovascular intact, FROM Neuro: COAx4, GCS 15, strength 5/5, CN 2-12 intact, normal cerebellar exam, normal gait, Psych: Normal behavior, mood, and affect normal Results (Laboratory/Radiology) Laboratory/Radiology Laboratory Tests Test 07/21/25 04:41 White Blood Count 2.2 K/uL (4.8-10.8) L Red Blood Count 4.12 MIL/uL (4.50-6.20) L Hemoglobin 13.0 g/dL (14.0-18.0) L Hematocrit 37.1 % (42-54) L Mean Corpuscular Volume 90.0 fL (79-99) Mean Corpuscular Hemoglobin 31.6 pg (27.0-33.0) Mean Corpuscular Hemoglobin Concent 35.0 g/dL (32.0-36.0) Red Cell Distribution Width 15.5 % (11.0-15.5) Platelet Count 29 K/uL (130-400) L Mean Platelet Volume fL (7.5-10.5) Immature Granulocyte % (Auto) 0.0 % (0-1) Neutrophils (%) (Auto) 62.7 % (40.0-77.0) Lymphocytes (%) (Auto) 18.9 % (21.0-51.0) L Monocytes (%) (Auto) 15.7 % (3.0-13.0) H Eosinophils (%) (Auto) 1.8 % (0.0-8.0) Basophils (%) (Auto) 0.9 % (0.0-5.0) Neutrophils # (Auto) 1.4 K/uL (1.8-7.7) L Lymphocytes # (Auto) 0.4 K/uL (1.0-4.8) L Monocytes # (Auto) 0.3 K/uL (0.1-1.0) Eosinophils # (Auto) 0.04 K/uL (0.00-0.70) Basophils # (Auto) 0.02 K/uL (0.00-0.20) Absolute Immature Granulocyte (auto 0.00 K/uL (0-1) Segmented Neutrophils % 66 % (40-70) Lymphocytes % (Manual) 18 % (22-44) L Monocytes % (Manual) 11 % (2-9) H Nucleated Red Blood Cells 0.0 % (0.0-0.19) Differential Comment MANUAL DIFFERENTIAL Reactive Lymphocytes 5 % (0-0) H White Cell Morphology Comment See comments Platelet Morphology Comment MARKED DECREASE Red Blood Cell Morphology ANISO 1+ Sodium Level 136 mmol/L (136-145) Potassium Level 3.5 mmol/L (3.5-5.1) Chloride Level 109 mmol/L (101-111) Carbon Dioxide Level 23 mmol/L (21-32) Blood Urea Nitrogen 9 mg/dL (7-18) Creatinine 0.7 mg/dL (0.5-1.3) Glomerular Filtration Rate Calc 114 mL/min (>90) Random Glucose 153 mg/dL (70-105) H Total Calcium 7.9 mg/dL (8.5-10.1) L Total Bilirubin 2.7 mg/dL (0.2-1.0) H Aspartate Amino Transf (AST/SGOT) 63 U/L (10-37) H Alanine Aminotransferase (ALT/SGPT) 52 U/L (12-78) Alkaline Phosphatase 184 U/L (50-136) H Ammonia 115 umol/L (11-32) *H Total Protein 6.0 g/dL (6.0-8.3) Albumin 2.3 g/dL (3.5-5.0) L Lipase 110 U/L (16-77) H Labs Reviewed?: Yes CT Scan Comment: BRIAN: ABD PAIN, ELEVATED AMMONIA ORDERING PHYSICIAN: RAJ ZAVALETA MD PROCEDURE: ABD PEL W - CT ABDOMEN/PELVIS W/CONTRAST EXAM: CT Abdomen and Pelvis with IV contrast CLINICAL HISTORY: Abdominal pain and elevated ammonia. TECHNIQUE: Axial computed tomography images of the abdomen and pelvis with intravenous contrast. CONTRAST: with intravenous contrast. COMPARISON: 04/23/2025 CT abd/pelvis FINDINGS: LUNG BASES: The lung bases appear clear. No pleural effusions are seen. LIVER: The liver shows irregular nodular margins with asymmetric hypertrophy of the left lobe and caudate lobe. Portal vein is dilated and measures 15 mm at the level of may hepatis. TIPS shunt is seen in situ. Multiple portosystemic collaterals. GALLBLADDER AND BILE DUCTS: Small foci of calcification along the gallbladder wall. The gallbladder is distended with an edematous wall. No radioopaque gallstones are seen. No biliary ductal dilatation is evident. PANCREAS: Significant peripancreatic fat stranding, which appears to be continuous with the fatty stranding in the central mesenterythis could be related to pancreatitis or edema-related mesenteric haziness. SPLEEN: The spleen is enlarged and measures 20 cm in craniocaudal span. A small nonenhancing focus in the splenic parenchymabest appreciated in image 35 of series 2. The splenic artery appears tortuous with at least 2 aneurysmal formations, measuring up to 3 x 2.6 x 3.9 and 3.1 x 2.9 x 2.6 cm in maximum dimension near the splenic hilum. ADRENAL GLANDS: Unremarkable. KIDNEYS, URETERS, AND BLADDER: The kidneys appear within normal limits. There is no hydronephrosis or hydroureter. No urinary calculi are seen. STOMACH AND BOWEL: A few uncomplicated colonic diverticulosis without acute diverticulitis. Multilevel mild bowel wall edema could be related to ascites. Minimal hiatal hernia. Unremarkable appearance of the stomach and bowel. No evidence of bowel obstruction. No evidence suggesting enteritis or colitis. APPENDIX: No evidence of acute appendicitis on CT examination. PERITONEUM: Small ascites, loculated in the right iliac fossa.. No free air. LYMPH NODES: No lymphadenopathy is evident. REPRODUCTIVE: Unremarkable as visualized. VASCULATURE: No evidence of abdominal aortic aneurysm. BONES: No aggressive appearing osseous lesion. No acute osseous pathology evident. A fat-containing umbilical hernia, defect 3 cm. The herniated fat shows haziness, suggesting inflammation or edema. 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 Further evaluation is recommended with a color Doppler study. Enlargement of the size of aneurysmal outpouching, but a stable splenic parenchymal defect since the prior scan. Significant haziness in the peripancreatic and central mesentery could be related to edema or mild pancreatitis and needs correlation with serum lipase and amylase. Relative progression since prior scan. Chronic liver parenchymal disease with features of portal hypertension as evidenced by dilated portal vein, splenomegaly, and ascites. Post TIPS status. Relative progression of ascites. Dilated, edematous gallbladder wall with a few calcific densities. Stable. Minimal hiatal hernia. Nearly stable. Uncomplicated colonic diverticulosis. Nearly stable. Small fat-containing umbilical hernia with possible edema or inflammation of herniated fat. Nearly stable. /[place] DICTATED BY: MIKI YARBROUGH Jr., MD DATE: 07/21/25828 ELECTRONICALLY SIGNED BY: MIKI YARBROUGH Jr., MD DATE: 07/21/25828 ED Course ED Course Orders Procedure Category Date Status Time Comprehensive LAB 07/21/25 Complete Metabolic Panel 04:20 Cbc With Differential LAB 07/21/25 Complete 04:20 Ammonia LAB 07/21/25 Complete 04:20 Lipase LAB 07/21/25 Complete 04:20 Morphine 2mg Syg PHA 07/21/25 Complete (Morphine 2mg Syg) 04:30 Manual Differential LAB 07/21/25 Complete 04:41 Lactulose 20 Gm/30 Ml PHA 07/21/25 Complete Udcup (Constulose 05:30 Lorazepam 0.5 Mg PHA 07/21/25 Complete (Ativan) 05:30 Ct Abdomen/Pelvis CT 07/21/25 Resulted W/Contrast 05:19 Morphine 2mg Syg PHA 07/21/25 Complete (Morphine 2mg Syg) 06:00 Iohexol (Omnipaque) PHA 07/21/25 Complete 05:42 Furosemide 40mg Vial PHA 07/21/25 Complete (Lasix 40mg Vial) 10:00 Morphine 4mg Syg PHA 07/21/25 Complete (Morphine 4mg Syg) 10:00 Ondansetron 4mg Inj PHA 07/21/25 Complete (Zofran 4mg Inj) 10:00 Current Medications Medications (Trade) Dose Ordered Sig/Tao Route PRN Reason Start Time Stop Time Status Last Admin Dose Admin Furosemide (LASix 40MG VIAL) 40 mg ONCE ONCE IV 07/21/25 10:00 07/21/25 10:01 DC 07/21/25 10:13 Iohexol (Omnipaque) 75 ml STK-MED ONCE IV 07/21/25 05:42 07/21/25 05:42 DC Lactulose (Constulose 20gm/ 30ml Udcup) 20 gm ONCE ONCE PO 07/21/25 05:30 07/21/25 05:31 DC 07/21/25 06:00 Lorazepam (AtiVAN) 0.5 mg ONCE ONCE PO 07/21/25 05:30 07/21/25 05:31 DC 07/21/25 06:00 Morphine Sulfate (morPHINE 2MG SYG) 2 mg ONCE ONCE IVP 07/21/25 04:30 07/21/25 04:31 DC 07/21/25 04:43 Morphine Sulfate (morPHINE 2MG SYG) 2 mg ONCE ONCE IVP 07/21/25 06:00 07/21/25 06:01 DC 07/21/25 06:07 Morphine Sulfate (morPHINE 4MG SYG) 4 mg ONCE ONCE IVP 07/21/25 10:00 07/21/25 10:01 DC 07/21/25 10:13 Ondansetron HCl (zoFRAN 4MG INJ) 4 mg ONCE ONCE IVP 07/21/25 10:00 07/21/25 10:01 DC 07/21/25 10:12 Vital Signs Date Time Temp Pulse Resp B/P (MAP) Pulse Ox O2 Delivery O2 Flow Rate FiO2 07/21/25 10:49 97.0 67 15 113/69 95 Room Air* 0 07/21/25 10:22 97.0 71 16 100/62 9 Room Air* 0 07/21/25 08:18 97.0 77 18 98/61 96 Room Air* 0 07/21/25 06:25 79 17 108/67 96 Room Air* 0 07/21/25 05:14 98.4 74 18 112/70 95 Room Air* 0 07/21/25 04:07 97.0 79 20 137/84 98 Room Air Medical Decision Making MDM 50-year-old male with a past medical history of cirrhosis who presented to the ER complaining of epigastric pain with radiation to right upper quadrant. -Abdominal pain -Hyperammonemia -Anxiety Ordered CMP, lipase. Pain medication ordered I will hold on CT images for now since the patient had a imagings performed with the facility 2 months ago., I will re-evaluate the patient after pain medications and decide if we will order more imagings workup. Laboratory reports was remarkable for ammonia level 115 Elevated liver enzymes 7.00 am-assumed care from the overnight physician. Jayne Ayers Patient is 50 years old male with a past medical history of liver cirrhosis, alcohol abuse, tips shunt placed on July 2024, hernia repair x2, small intestine resection, back pain, anxiety, hyperlipidemia, morbid obesity, multiple paracentesis once a week, who came to emergency department for evaluation of abdominal distention and pain. Patient stated that he has been having very bloated and is complaining of nausea and vomiting for the past about three days. Patient also stated that he has lost has been swollen and little number. Patient normally does a paracentesis once week, and the last one was performed on 04/09/2025. Patient denies any fever, chills. Patient also complained of "thinking slower". Of note patient referred to [facility] and is currently on list for liver transplant evaluation. He apparently was seen a week ago on 07/02/2025 and he left AMA at the time Temperature 97 pulse 79 respirations 20 blood pressure 137/84 with a pulse oximetry of 98% on room air Patient remains complaining of the pain after 2 mg of morphine. He also complains of anxiety patient's last paracentesis was 2 weeks ago. 8:00 a.m. Labs reviewed CBC showed a white count of 2.2 hemoglobin 13 platelets 29, ammonia 115 a lot better than multiple previous visits. Bilirubin 2.7 which is also much improved CT abdomen and pelvis-please see the full report no new changes were noted. Also updated him that there was not enough ascites to do paracentesis at this time. I updated the patient on all the labs and the CT scan findings and he is alert awake oriented x4 and he has been waiting for liver transplantation for the past 2 years Once his pain is controlled he would like to be discharged to home to follow up with his liver specialist Rationale: Tests considered and ordered secondary to shared decision making include: Labs, CT scan of the abdomen and pelvis Previous outside records reviewed: Old ER visits. Risk of complication and/or morbidity or mortality of patient management: None Medications-Per medication reconciliation Need for hospitalization: Patient does not meet criteria for hospitalization. Need for emergency major/minor surgery: No There are no social concerns with this patient. Prescription drug management Prescriptions will include symptomatic care Patient's prior external medical records from other ER visits were reviewed by me as indicated. Prior testing and results from previous visits were reviewed. Prior tests were taken into account with medical decision making and resource utilization, independent historian/historians were used to obtain complete medical history. I independently interpreted the test that were performed, results were reviewed by me and considered findings on radiology if ordered. Medical management and examination interpretation discussions were had by me with other qualified healthcare professionals as indicated for the patient's care. CT images he will be ordered of abdomen and pelvis with contrast. Problem List Problem List: (1) Liver cirrhosis (2) Abdominal pain (3) Hyperammonemia (4) Thrombocytopenia (5) Anemia DX & DISP Disposition: Discharge Departure Impression: Primary Impression: Abdominal pain Additional Impressions: Hyperammonemia, Liver cirrhosis, Thrombocytopenia, Microcytic hypochromic anemia Condition: Stable Referrals: LAURA POPE MD (PCP) RAJ ZAVALETA MD Jul 21, 2025 04:27 DEVAUGHN VICK MD Jul 21, 2025 08:11
[2025-07-21 04:50] LABS: IMMATURE GRANULOCYTE ABSOLUTE 0.00 K/uL (0-1); NUCLEATED RED BLOOD CELLS 0.0 % (0.0-0.19); PLATELET COUNT (AUTO) 29 K/uL (130-400); RED BLOOD CELL COUNT(AUTO) 4.12 MIL/uL (4.50-6.20); RED CELL DISTRIBUTION WIDTH 15.5 % (11.0-15.5); WHITE BLOOD COUNT (AUTO) 2.2 K/uL (4.8-10.8)
[2025-07-21 04:58] LABS: CREATININE 0.7 mg/dL (0.5-1.3); GLOMERULAR FILTR. RATE CALC 114.0 mL/min (>90); GLUCOSE,RANDOM 153.0 mg/dL (70-105); SODIUM SERUM 136.0 mmol/L (136-145); UREA NITROGEN, BLOOD 9.0 mg/dL (7-18)
[2025-07-21 05:04] LABS: ASPARTATE AMINOTRANSFERASE 63.0 U/L (10-37); TOTAL PROTEIN, SERUM 6.0 g/dL (6.0-8.3)
[2025-07-21 05:23] LABS: LYMPHOCYTES % (MANUAL) 18 % (22-44); MONOCYTES % (MANUAL) 11 % (2-9); REACTIVE LYMPHOCYTES 5 % (0-0); SEGMENTED NEUTROPHILS % 66 % (40-70)
[2025-07-21 05:24] LABS: MAN.DIFF COMMENT-IMPRESSION MANUAL DIFFERENTIAL; PLATELET MORPHOLOGY COMMENT MARKED DECREASE
[2025-07-21] MEDS ORDERED: IOHEXOL-350 75 ML VIAL IV ONE (05:42)
[2025-07-21] MEDS: LACTULOSE 20 GM/30 ML UDCUP PO ONE (06:00)
--- NOTE | 2025-07-21 07:30 | HMCIMG ---
EXAM: CT Abdomen and Pelvis with IV contrast CLINICAL HISTORY: Abdominal pain and elevated ammonia. TECHNIQUE: Axial computed tomography images of the abdomen and pelvis with intravenous contrast. CONTRAST: with intravenous contrast. COMPARISON: 04/23/2025 CT abd/pelvis FINDINGS: LUNG BASES: The lung bases appear clear. No pleural effusions are seen. LIVER: The liver shows irregular nodular margins with asymmetric hypertrophy of the left lobe and caudate lobe. Portal vein is dilated and measures 15 mm at the level of may hepatis. TIPS shunt is seen in situ. Multiple portosystemic collaterals. GALLBLADDER AND BILE DUCTS: Small foci of calcification along the gallbladder wall. The gallbladder is distended with an edematous wall. No radioopaque gallstones are seen. No biliary ductal dilatation is evident. PANCREAS: Significant peripancreatic fat stranding, which appears to be continuous with the fatty stranding in the central mesenterythis could be related to pancreatitis or edema-related mesenteric haziness. SPLEEN: The spleen is enlarged and measures 20 cm in craniocaudal span. A small nonenhancing focus in the splenic parenchymabest appreciated in image 35 of series 2. The splenic artery appears tortuous with at least 2 aneurysmal formations, measuring up to 3 x 2.6 x 3.9 and 3.1 x 2.9 x 2.6 cm in maximum dimension near the splenic hilum. ADRENAL GLANDS: Unremarkable. KIDNEYS, URETERS, AND BLADDER: The kidneys appear within normal limits. There is no hydronephrosis or hydroureter. No urinary calculi are seen. STOMACH AND BOWEL: A few uncomplicated colonic diverticulosis without acute diverticulitis. Multilevel mild bowel wall edema could be related to ascites. Minimal hiatal hernia. Unremarkable appearance of the stomach and bowel. No evidence of bowel obstruction. No evidence suggesting enteritis or colitis. APPENDIX: No evidence of acute appendicitis on CT examination. PERITONEUM: Small ascites, loculated in the right iliac fossa.. No free air. LYMPH NODES: No lymphadenopathy is evident. REPRODUCTIVE: Unremarkable as visualized. VASCULATURE: No evidence of abdominal aortic aneurysm. BONES: No aggressive appearing osseous lesion. No acute osseous pathology evident. A fat-containing umbilical hernia, defect 3 cm. The herniated fat shows haziness, suggesting inflammation or edema. 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 Further evaluation is recommended with a color Doppler study. Enlargement of the size of aneurysmal outpouching, but a stable splenic parenchymal defect since the prior scan. Significant haziness in the peripancreatic and central mesentery could be related to edema or mild pancreatitis and needs correlation with serum lipase and amylase. Relative progression since prior scan. Chronic liver parenchymal disease with features of portal hypertension as evidenced by dilated portal vein, splenomegaly, and ascites. Post TIPS status. Relative progression of ascites. Dilated, edematous gallbladder wall with a few calcific densities. Stable. Minimal hiatal hernia. Nearly stable. Uncomplicated colonic diverticulosis. Nearly stable. Small fat-containing umbilical hernia with possible edema or inflammation of herniated fat. Nearly stable. /[place]
[2025-07-21 10:49] VITALS: BP 113/69; PULSE 67; RESP 15; TEMP 97; O2SAT 95
== END 2025-07-21 10:58 | disposition home or self-care (01) ==
LOC: EEVIPCON 04:05 → EDH 04:05
DX: K74.60 Unspecified cirrhosis of liver (principal); D69.6 Thrombocytopenia, unspecified; D50.9 Iron deficiency anemia, unspecified; E72.20 Disorder of urea cycle metabolism, unspecified; R10.13 Epigastric pain; F17.200 Nicotine dependence, unspecified, uncomplicated; Z79.899 Other long term (current) drug therapy; Z98.890 Other specified postprocedural states
CPT/HCPCS: 99285; 74177; 96374; 96375; 80053; 82140; 83690; 85025; 36415; 96376; J2270 ×3; J2405; J1938; Q9967; J7030